=== PATIENT | female | born 1935 | race American Indian/Alaskan Native ===

== ENCOUNTER 2016-12-18 01:12 | Emergency (ER) | payer MEDICARE, MEDICAID ==
[2016-12-18 02:00] VITALS: TEMP 98.3; O2SAT 93
--- NOTE | 2016-12-18 02:46 | C.PDOC ---
History Of Present Illness A 81 year old female presents to the ED c/o abdominal pain and bloating that occurred over the past few days that has worsened. Patient is speaking in full sentences but denies chest pain, palpitations, SOB, fever, chills, vaginal discharge or bleeding, or any other complaints. Time Seen by Provider: 12/18/16 02:46 Chief Complaint (Nursing): GI Problem History Per: Patient History/Exam Limitations: no limitations Onset/Duration Of Symptoms: Days Current Symptoms Are (Timing): Still Present Severity: Mild Recent travel outside of the [place]: No Additional History Per: Patient Past Medical History Reviewed: Historical Data, Nursing Documentation, Vital Signs Vital Signs: Last Vital Signs Temp 98.3 F 12/18/16 01:55 Pulse 88 12/18/16 01:55 Resp 24 12/18/16 01:55 BP 141/84 12/18/16 01:55 Pulse Ox 93 L 12/18/16 05:52 - Medical History PMH: Arthritis, HTN, Sleep Apnea Surgical History: Cholecystectomy Family History: States: No Known Family Hx - Social History Hx Alcohol Use: No Hx Substance Use: No - Immunization History Hx Tetanus Toxoid Vaccination: No Hx Influenza Vaccination: Yes Hx Pneumococcal Vaccination: Yes Review Of Systems Except As Marked, All Systems Reviewed And Found Negative. Constitutional: Negative for: Fever, Chills Cardiovascular: Negative for: Chest Pain, Palpitations Respiratory: Negative for: Shortness of Breath Gastrointestinal: Positive for: Abdominal Pain (Pain and bloating) Genitourinary: Negative for: Vaginal Discharge, Vaginal Bleeding Physical Exam - Physical Exam Appears: Non-toxic, No Acute Distress Skin: Warm, Dry Head: Atraumatic Cardiovascular: No Murmur Respiratory: No Rales, No Rhonchi, No Wheezing Gastrointestinal/Abdominal: Soft, Distention (Distended to percussion), No Guarding, No Rebound Extremity: Pedal Edema (Traces to pedal edema) Neurological/Psych: Oriented x3, Normal Speech, No Other (No focal deficit) ED Course And Treatment - Laboratory Results Result Diagrams: 12/18/16 03:05 12/18/16 03:05 ECG: Interpreted By Me, Viewed By Me ECG Rhythm: Sinus Rhythm (87), R BBB, Nonspecific Changes O2 Sat by Pulse Oximetry: 93 (Room air) Pulse Ox Interpretation: Normal Reevaluation Time: 06:55 Reassessment Condition: Improved Medical Decision Making Medical Decision Making: Upon provider reevaluation patient is feeling better, is medically stable, and requires no further treatment in the ED at this time. Patient will be discharged home with Rx for miralax. Counseling was provided and all questions were answered regarding diagnosis and need for follow up with dr savage. There is agreement to discharge plan. Return if symptoms persist or worsen. Disposition Counseled Patient/Family Regarding: Studies Performed, Diagnosis - Disposition Referrals: Elie Savage MD [Primary Care Provider] - Disposition: HOME/ ROUTINE Disposition Time: 02:46 Condition: FAIR Prescriptions: Polyethylene Glycol 3350 [Miralax] 17 gm PO DAILY #270 ml Instructions: Abdominal Pain (ED), Gas and Bloating (ED), Constipation (DC) - Clinical Impression Clinical Impression: Abdominal pain, Constipation - Scribe Statement The provider has reviewed the documentation as recorded by the Scribe Maribel dooley All medical record entries made by the Scribe were at my direction and personally dictated by me. I have reviewed the chart and agree that the record accurately reflects my personal performance of the history, physical exam, medical decision making, and the department course for this patient. I have also personally directed, reviewed, and agree with the discharge instructions and disposition.
[2016-12-18 03:08] LABS: BASO # 0.1 K/uL (0.0-0.2); BASO % 0.7 % (0.0-2.0); EOS # 0.1 K/uL (0.0-0.7); EOS % 1.1 % (0.0-4.0); LYMPH # 1.2 K/uL (1.0-4.3); LYMPH % 17.3 % (20.0-40.0); MEAN CELL VOLUME 100.4 fL (81.0-99.0); MEAN CORPUSCULAR HEMOGLOBIN 32.7 pg (27.0-31.0); MEAN CORPUSCULAR HGB CONC 32.6 g/dL (33.0-37.0); MONO # 0.4 K/uL (0.0-0.8); MONO % 5.7 % (0.0-10.0); NRBC % 0.1 % (0.0-2.0); RED CELL DISTRIBUTION WIDTH 12.5 % (11.5-14.5); WHITE BLOOD COUNT 7.1 K/uL (4.8-10.8)
[2016-12-18 03:10] LABS: URINE BILIRUBIN NEGATIVE (NEGATIVE); URINE BLOOD NEGATIVE (NEGATIVE); URINE COLOR Straw (YELLOW); URINE GLUCOSE (UA) NORMAL (Normal); URINE KETONE NEGATIVE (NEGATIVE); URINE LEUKOCYTE ESTERASE NEG Leu/uL (Negative); URINE PROTEIN NEGATIVE (NEGATIVE); URINE UROBILINOGEN NORMAL mg/dL (0.2-1.0); WBC URINE < 1 /hpf (0-5)
[2016-12-18 03:20] LABS: CHLORIDE 98 mmol/L (98-107); POTASSIUM 4.2 mmol/L (3.6-5.2); SODIUM 142 mmol/L (132-148)
[2016-12-18 03:21] LABS: INR 1.1
[2016-12-18 03:22] LABS: ALKALINE PHOSPHATASE 73 U/L (38-126); AST/SGOT 32 U/L (14-36); BILIRUBIN,TOTAL 1.1 mg/dL (0.2-1.3); BLOOD UREA NITROGEN 13 mg/dL (7-17); CARBON DIOXIDE 30 mmol/L (22-30); GFR AFRICAN-AMERICAN > 60; TOTAL PROTEIN 8.6 g/dL (6.3-8.3)
[2016-12-18 03:23] LABS: ALT/SGPT 22 U/L (9-52); CALCIUM 9.1 mg/dl (8.6-10.4); GLUCOSE,RANDOM 142 mg/dL (65-105)
[2016-12-18] MEDS ORDERED: Iodixanol 320 MG/ML 100 ML BOTTLE IV ONE (04:47)
--- NOTE | 2016-12-18 06:55 | CT ---
EXAM: CT Abdomen and Pelvis With Intravenous Contrast CLINICAL HISTORY: 81 years old, female; Pain; Abdominal pain; Generalized; Additional info: Abd pain. Iv line infiltrated, scan done without visible contrast TECHNIQUE: Axial computed tomography images of the abdomen and pelvis with intravenous contrast. This CT exam was performed using one or more of the following dose reduction techniques: automated exposure control, adjustment of the mA and/or kV according to patient size, and/or use of iterative reconstruction technique. Coronal and sagittal reformatted images were created and reviewed. CONTRAST: 100 mL of [id number] administered intravenously. EXAM DATE/TIME: 12/18/2016 3:26 AM COMPARISON: No relevant prior studies available. FINDINGS: LIMITATIONS: The technologist noted that the patient's IV infiltrated, and this is essentially a noncontrast exam. Exam is also limited by moderate streak/motion artifact and artifact related to the patient's body habitus. LOWER THORAX: No infiltrate seen in the lung bases. ABDOMEN: LIVER: No acute abnormality of the liver identified. GALLBLADDER AND BILE DUCTS: Cholecystectomy clips. PANCREAS: No CT evidence of acute pancreatitis. SPLEEN: No acute abnormality of the spleen identified. ADRENALS: No acute abnormality of the adrenal glands identified. KIDNEYS AND URETERS: No acute abnormality of the kidneys identified. No evidence of significant hydrouereteronephrosis. STOMACH AND BOWEL: Extensive colonic diverticulosis, without evidence of acute diverticulitis. Otherwise, no definite abnormality of the bowel is identified. No evidence of small bowel obstruction, allowing for motion artifact. No acute abnormality of the stomach or duodenum identified. APPENDIX: Normal appendix is not seen, however, there are no significant inflammatory changes visualized in the expected location of the appendix to suggest appendicitis. Recommend clinical correlation. PELVIS: BLADDER: No acute abnormality of the bladder identified. REPRODUCTIVE:No acute abnormality of the reproductive organs is seen. No acute abnormality of the uterus identified. No evidence of large adnexal masses. ABDOMEN and PELVIS: INTRAPERITONEAL SPACE: No evidence of free intraperitoneal air or fluid. BONES/JOINTS: No acute fractures or other acute bony abnormality noted. SOFT TISSUES: No acute abnormality of the visualized soft tissues is seen. VASCULATURE: Atherosclerotic calcification. No evidence of abdominal aortic aneurysm. LYMPH NODES: No evidence of diffuse lymphadenopathy. IMPRESSION: - No definite acute process identified. Exam is limited by motion artifact, however. - See above for remaining findings.
[2016-12-18 07:04] VITALS: BP 135/79; PULSE 80; RESP 16
--- NOTE | 2017-01-05 11:54 | CARD ---
APPROVED REPORT EKG Measurement Heart [id number] <Conclusion> Normal sinus rhythm Left axis deviation Right bundle branch block Abnormal ECG
== END 2016-12-18 07:03 | disposition home or self-care (01) ==
LOC: C.ER 01:12 → SUPCPDRO 01:12 → MERGE 01:12 → C.ER 07:03
DX: K59.00 Constipation, unspecified (principal)
CPT/HCPCS: 74177; 80053; 81001; 83690; 85025; 85610; 85730; 93005; 96374; 96375; 99284; J2405; Q9967

== ENCOUNTER 2018-06-26 05:59 | Inpatient (IN) | payer MEDICARE, MEDICAID ==
[2018-06-26] MEDS ORDERED: MethylPREDNISolone 40 mg Vial IVP STA (07:18)
[2018-06-26] MEDS ORDERED: Albuterol-Ipratrop 3 mg / 0.5 (3 ml) UD INH STA ×2 (07:18→07:19)
--- NOTE | 2018-06-26 08:13 | C.PDOC ---
History Of Present Illness 82-year-old female, PMHx includes COPD, morbid obesity, and arthritis presents to the emergency department with complaints of a cough since last night. Patient is also complaining of her chronic arthritis pain. She denies any nausea/ vomiting, fever. Time Seen by Provider: 06/26/18 07:13 Chief Complaint (Nursing): Shortness Of Breath History Per: Patient History/Exam Limitations: no limitations Past Medical History Reviewed: Historical Data, Nursing Documentation, Vital Signs Vital Signs: Last Vital Signs Temp 98.6 F 06/26/18 06:27 Pulse 98 H 06/26/18 06:27 Resp 16 06/26/18 06:28 BP 138/74 06/26/18 06:27 Pulse Ox 100 06/26/18 06:27 - Medical History PMH: Arthritis, Asthma, CHF, COPD, HTN, Sleep Apnea, Chronic Pain Surgical History: Cholecystectomy - [facility] Procedures ASSISTANCE WITH RESPIRATORY VENTILATION, 24-96 HRS, CPAP (07/08/16) ASSISTANCE WITH RESPIRATORY VENTILATION, >96 HRS, CPAP (07/31/15) Family History: States: No Known Family Hx - Social History Hx Tobacco Use: No Hx Alcohol Use: No Hx Substance Use: No - Immunization History Hx Tetanus Toxoid Vaccination: No Hx Influenza Vaccination: No Hx Pneumococcal Vaccination: No Review Of Systems Constitutional: Negative for: Fever Respiratory: Positive for: Cough. Negative for: Shortness of Breath Gastrointestinal: Negative for: Nausea, Vomiting Physical Exam - Physical Exam Appears: Non-toxic, No Acute Distress, Other (morbidly obese) Skin: Warm, Dry, No Rash Head: Atraumatic, Normacephalic Eye(s): bilateral: Normal Inspection, PERRL, EOMI Nose: Normal Oral Mucosa: Moist Lips: Normal Appearing Neck: Normal ROM Cardiovascular: Rhythm Regular, No Murmur Respiratory: Normal Breath Sounds, No Accessory Muscle Use Gastrointestinal/Abdominal: Soft, No Tenderness Back: Normal Inspection Extremity: Normal ROM, No Deformity Neurological/Psych: Oriented x3, Normal Speech ED Course And Treatment - Laboratory Results Result Diagrams: 06/26/18 08:02 06/26/18 08:02 O2 Sat by Pulse Oximetry: 100 Pulse Ox Interpretation: Normal (RA) Medical Decision Making Medical Decision Making: ro copd chf pna. noted hypercarbia, ssupect chronic. bipap intiated. improved s/p abg. cxr ?developing infiltrate. empric antibiotics ordered. discussed with pmd accepts symptoms improving. Disposition - Disposition Disposition: HOSPITALIZED Disposition Time: 09:00 Condition: STABLE - Clinical Impression Clinical Impression: COPD (chronic obstructive pulmonary disease), Hypercarbia - Scribe Statement The provider has reviewed the documentation as recorded by the Scribe (Judith Rodriguez) Provider Attestation: All medical record entries made by the Scribe were at my direction and perso kar dictated by me. I have reviewed the chart and agree that the record accurately reflects my personal performance of the history, physical exam, medical decision making, and the department course for this patient. I have also personally directed, reviewed, and agree with the discharge instructions and disposition.
[2018-06-26 08:18] LABS: INR 1.2
[2018-06-26 08:20] LABS: BASO % 0.6 % (0.0-2.0); EOS % 0.6 % (0.0-4.0); HEMOGLOBIN 12.6 g/dL (11.0-16.0); LYMPH # 0.7 K/uL (1.0-4.3); LYMPH % 12.1 % (20.0-40.0); MEAN CELL VOLUME 99.5 fL (81.0-99.0); MEAN CORPUSCULAR HEMOGLOBIN 32.8 pg (27.0-31.0); MONO # 0.4 K/uL (0.0-0.8); MONO % 6.3 % (0.0-10.0); NEUT # 4.8 K/uL (1.8-7.0); NEUT % 80.4 % (50.0-75.0); NRBC % 0.1 % (0.0-2.0); RBC 3.83 Mil/uL (3.80-5.20); RED CELL DISTRIBUTION WIDTH 12.8 % (11.5-14.5)
[2018-06-26] MEDS ORDERED: Albuterol-Ipratrop 3 mg / 0.5 (3 ml) UD ONE (08:20)
[2018-06-26 08:29] LABS: ALBUMIN 3.9 g/dL (3.5-5.0); ALT/SGPT 18 U/L (9-52); AST/SGOT 19 U/L (14-36); BLOOD UREA NITROGEN 15 mg/dL (7-17); CALCIUM 9.1 mg/dl (8.6-10.4); GFR NON-AFRICAN AMERICAN > 60
[2018-06-26 08:33] LABS: VENOUS BLOOD GAS PCO2 67 mmHg (40-60); VENOUS BLOOD GAS PO2 47 mm/Hg (30-55); VENOUS BLOOD PH 7.33 (7.32-7.43)
[2018-06-26 08:41] LABS: B-TYPE NATRIURETIC PEPTIDE 63.3 pg/mL (0-900)
[2018-06-26] MEDS ORDERED: Azithromycin 500 MG in Sodium Chloride 0.9% 250 ML IVPB STA (08:43)
[2018-06-26 09:13] LABS: SQUAMOUS EPITHIAL 9 /hpf (0-5); URINE BACTERIA RARE (<OCC); URINE BILIRUBIN NEGATIVE (NEGATIVE); URINE BLOOD NEGATIVE (NEGATIVE); URINE CLARITY Clear (Clear); URINE COLOR Yellow (YELLOW); URINE GLUCOSE (UA) NORMAL (Normal); URINE LEUKOCYTE ESTERASE TRACE Leu/uL (Negative); URINE PROTEIN NEGATIVE (NEGATIVE); URINE UROBILINOGEN NORMAL mg/dL (0.2-1.0)
[2018-06-26 09:20] LABS: ABG ALLEN TEST POS; ARTERIAL BLOOD GAS O2 SAT 98.9 % (95-98); ARTERIAL BLOOD GAS PCO2 57 mm/Hg (35-45); ARTERIAL BLOOD GAS PH 7.36 (7.35-7.45); ARTERIAL BLOOD GAS PO2 136 mm/Hg (80-100); ARTERIAL BLOOD GAS TCO2 33.9 mmol/L (22-28)
--- NOTE | 2018-06-26 09:41 | RAD ---
Date of service: 06/26/2018 PROCEDURE: CHEST RADIOGRAPH, 1 VIEW HISTORY: chest pain COMPARISON: 07/10/2016 FINDINGS: LUNGS: Clear. PLEURA: No pneumothorax or pleural fluid seen. CARDIOVASCULAR: Normal. OSSEOUS STRUCTURES: No significant abnormalities. VISUALIZED UPPER ABDOMEN: Normal. OTHER FINDINGS: None. IMPRESSION: No active disease.
--- NOTE | 2018-06-26 16:01 | CP.PCM.PN ---
Subjective - Date & Time of Evaluation Date of Evaluation: 06/26/18 Time of Evaluation: 16:00 - Subjective Subjective: Progress note. Attending: Dr. Brandt. This is an 82 yo female with hx of COPD, HTN, irritable bowel syndrome, possible diabetes, heart failure presenting with chief complaint of shortness of breath and wheezing. Pt is present with her . Put on bipap in ER. Hx is limited as pt presents on Bipap and Creole is pt's first language. PMH: right heart failure, cor pulmonale?, most recent echo 2014, COPD/asthma, obesity hypoventilation syndrome Allergies: NKDA FH: non contributory Home meds: lasix, amitiza, eye itch drops, vitamin D Past surgical hx: cholecystectomy Social hx: non smoker. non drinker. non drug user. from [place]. Objective - Vital Signs/Intake and Output Vital Signs (last 24 hours): Temp Pulse Resp BP Pulse Ox 98.0 F 111 H 20 187/112 H 97 06/26/18 15:47 06/26/18 15:47 06/26/18 15:47 06/26/18 15:47 06/26/18 15:47 - Medications Medications: Current Medications Albuterol/Ipratropium (Duoneb 3 Mg/0.5 Mg (3 Ml) Ud) 3 ml INH RQ6 MISTY Amlodipine Besylate (Norvasc) 5 mg PO ONCE ONE Stop: 06/26/18 16:01 Furosemide (Lasix) 40 mg PO DAILY MISTY Ceftriaxone Sodium 1 gm/ (Sodium Chloride) 100 mls @ 100 mls/hr IVPB DAILY MISTY; Protocol Last Admin: 06/26/18 11:48 Dose: 100 mls/hr Methylprednisolone (Solu-Medrol) 40 mg IVP Q6 MISTY - Labs Labs: 06/26/18 08:02 06/26/18 08:02 PT 13.0 SECONDS (9.7-12.2) H 06/26/18 08:02 INR 1.2 06/26/18 08:02 APTT 34 SECONDS (21-34) 06/26/18 08:02 - Constitutional Appears: Chronically Ill - Head Exam Head Exam: ATRAUMATIC, NORMAL INSPECTION, NORMOCEPHALIC - Eye Exam Eye Exam: EOMI - ENT Exam ENT Exam: Mucous Membranes Moist - Neck Exam Neck Exam: Full ROM, Normal Inspection - Respiratory Exam Respiratory Exam: Clear to Ausculation Bilateral - Cardiovascular Exam Cardiovascular Exam: +S1, +S2 - GI/Abdominal Exam GI & Abdominal Exam: Soft, Normal Bowel Sounds. absent: Tenderness - Extremities Exam Extremities Exam: absent: Full ROM, Normal Inspection - Back Exam Back Exam: NORMAL INSPECTION - Neurological Exam Neurological Exam: Alert, Awake, CN II-XII Intact - Psychiatric Exam Psychiatric exam: Normal Affect, Normal Mood - Skin Skin Exam: Dry, Intact, Normal Color, Warm Assessment and Plan - Assessment and Plan (Free Text) Assessment: This is an 82 yo female with 1. COPD exacerbation -IV solumedrol q 6 -nebulizer tx -bipap -IV abx -ID consult. recs appreciated. Dr. Barney -BNP within normal limits -CXR -repeat labs am 2. tachycardia -will order cardio consult. Dr. Lamb. recs appreciated. -D dimer -sinus tachycardia on ekg -1st troponin negative 3. Obesity hypoventilation syndrome -bipap for now -follow up sleep study 4. Hx of right heart failure -cor pulmonale? -cardio consult. recs appreciated. Dr. Lamb. -previous echo shows severe right heart failure 4. Elevated blood glucose -will order HGB a1c -lipid panel 5. GI/DVT ppx -heparin 5000 q 8 -protonix [address] Brandt.
[2018-06-26 16:43] LABS: HDL CHOLESTEROL 36 mg/dL (30-70)
[2018-06-26 16:54] LABS: LDL CHOLESTEROL 142 mg/dL (0-129)
[2018-06-26] MEDS: MethylPREDNISolone 40 mg Vial IVP SCH (17:46)
--- NOTE | 2018-06-26 18:08 | CP.PCM.CON ---
History of Present Illness - History of Present Illness History of Present Illness: 82-year-old female, PMHx includes COPD, morbid obesity, and arthritis presents to the emergency department with complaints of a cough since last night. Admitted to floor with possible sepsis exac COPD and CHF requiring BiPaP - Medical History PMH: Arthritis, Asthma, CHF, COPD, HTN, Sleep Apnea, Chronic Pain, morbid obesity Surgical History: Cholecystectomy - [facility] Procedures ASSISTANCE WITH RESPIRATORY VENTILATION, 24-96 HRS, CPAP (07/08/16) ASSISTANCE WITH RESPIRATORY VENTILATION, >96 HRS, CPAP (07/31/15) Review of Systems - Review of Systems Systems not reviewed;Unavailable: Language Barrier All systems: reviewed and no additional remarkable complaints except - Constitutional Constitutional: As Per HPI - EENT Eyes: absent: As Per HPI, Blind Spots, Blurred Vision, Change in Vision, Decreased Night Vision, Diplopia, Discharge, Dry Eye, Exophthalmos, Floaters, Irritation, Itchy Eyes, Loss of Peripheral Vision, Pain, Photophobia, Requires Corrective Lenses, Sees Flashes, Spots in Vision, Tunnel Vision, Other Visual Disturbances, Loss of Vision, Other Ears: absent: As Per HPI, Decreased Hearing, Ear Discharge, Ear Pain, Tinnitus, Abnormal Hearing, Disequilibrium, Dizziness, Other Nose/Mouth/Throat: absent: As Per HPI, Epistaxis, Nasal Congestion, Nasal Discharge, Nasal Obstruction, Nasal Trauma, Nose Pain, Post Nasal Drip, Sinus Pain, Sinus Pressure, Bleeding Gums, Change in Voice, Dental Pain, Dry Mouth, Dysphagia, Halitosis, Hoarsness, Lip Swelling, Mouth Lesions, Mouth Pain, Odynophagia, Sore Throat, Throat Swelling, Tongue Swelling, Facial Pain, Neck Pain, Neck Mass, Other - Breasts Breasts: absent: As Per HPI, Change in Shape, Mass, Pain, Nipple Discharge, Nipple Inversion, Skin Changes, Swelling, Other - Cardiovascular Cardiovascular: As Per HPI - Respiratory Respiratory: As Per HPI - Gastrointestinal Gastrointestinal: absent: As Per HPI, Abdominal Pain, Belching, Bloating, Change in Bowel Habits, Change in Stool Character, Coffee Ground Emesis, Constipation, Cramping, Diarrhea, Dyspepsia, Dysphagia, Early Satiety, Excessive Flatus, Fecal Incontinence, Heartburn, Hematemesis, Hematochezia, Loose Stools, Melena, Na usea, Odynophagia, Temesmus, Vomiting, Other - Genitourinary Genitourinary: absent: As Per HPI, Change in Urinary Stream, Difficulty Urinating, Dysuria, Flank Pain, Hematuria, Pyuria, Nocturia, Urinary Incontinence, Urinary Frequency, Urinary Hesitance, Urinary Urgency, Voiding Freq/Small Amts, Freq UTI, Hx Renal/Bladder Calculi, Hx /Renal Surgery, Bladder Distension, Other - Reproductive: Female Reproductive:Female: absent: As Per HPI, Amenorrhea, Amenorrhea/ Control, Currently Menstual, Cycle <21 Days, Cycle >35 Days, Cycle Variable, Menses 1-7 Days, Menses >/= 8 Days, Menses Variable, Cycle > 4 Weeks Between, No Menses for 6 Months, Heavy Menses, Light Menses, Normal Menses, Spotting Between Cycles, S/P Hysterectomy, Menopausal, Post Menopausal, Premenarche, Abnormal Vaginal Bleeding, Dysmenorrhea, Dyspareunia, Genital Lesions, Genital Pruritis, Pelvic Pain, Prolapse Symptoms, Sexual Dysfunction, Vaginal Discharge, Vaginal Dryness, Vaginal Odor, Vaginal Pruritis, Other - Menstruation Menstruation: absent: As Per HPI, Amenorrhea, Amenorrhea/ Control, Cu rrently Menstual, Cycle <21 Days, Cycle >35 Days, Cycle Variable, Menses 1-7 Days, Menses >/= 8 Days, Menses Variable, Cycle > 4 Weeks Between, No Menses for 6 Months, Heavy Menses, Light Menses, Normal Menses, Spotting Between Cycles, S/P Hysterectomy, Menopausal, Post Menopausal, Premenarche, Abnormal Vaginal Bleeding, Dysmenorrhea, Other - Musculoskeletal Musculoskeletal: absent: As Per HPI, Abnormal Gait, Arthralgias, Atrophy, Back Pain, Deformity, Joint Swelling, Limited Range of Motion, Loss of Height, Muscle Cramps, Muscle Weakness, Myalgias, Neck Pain, Numbness, Radiating Pain into Limb, Stiffness, Tingling, Other - Integumentary Integumentary: absent: As Per HPI, Acne, Alopecia, Bleeding Lesions, Change in Hair, Change in Nails, Change in Pigmentation, Changing Lesions, Dry Skin, Erythema, Furuncle, Hirsutism, Lesions, New Lesions, Non-Healing Lesions, Photosensitivity, Pruritus, Rash, Skin Pain, Skin Ulcer, Sores, Striae, Swelling, Unusual Bruising, Wounds, Jaundice, Other - Neurological Neurological: absent: As Per HPI, Abnormal Gait, Abnormal Hearing, Abnormal Movements, Abnormal Speech, Behavioral Changes, Burning Sensations, Confusion, Convulsions, Disequilibrium, Dizziness, Numbness, Focal Weakness, Frequent Falls, Headaches, Lack of Coordination, Loss of Vision, Memory Loss, Paresthesias, Radicular Pain, Restless Legs, Sensory Deficit, Syncope, Tingling, Tremor, Vertigo, Weakness, Other Visual Disturbances, Other - Psychiatric Psychiatric: absent: As Per HPI, Abnormal Sleep Pattern, Anhedonia, Anxiety, Auditory Hallucinations, Behavioral Changes, Change in Appetite, Change in Libido, Confusion, Depression, Difficulty Concentrating, Hallucinations, Homicidal Ideation, Hopelessness, Irritability, Memory Loss, Mood Swings, Panic Attacks, Paranoia, Suicidal Ideation, Visual Hallucinations, Tactile Adriano lucinations, Other - Endocrine Endocrine: absent: As Per HPI, Change in Body Appearance, Change in Libido, Cold Intolorance, Deepening of Voice, Excessive Sweating, Fatigue, Flushing, Heat Intolorance, Increase in Ring/Shoe/Hat Size, Palpitations, Polydipsia, P olyphagia, Polyuria, Other - Hematologic/Lymphatic Hematologic: absent: As Per HPI, Easy Bleeding, Easy Bruising, Lymphadenopathy, Other Past Patient History - Infectious Disease Hx of Infectious Diseases: None - Past Medical History & Family History Past Medical History?: Yes - Past Social History Smoking Status: Never Smoked - CARDIAC Hx Congestive Heart Failure: Yes Hx Hypertension: Yes - PULMONARY Hx Asthma: Yes Hx Chronic Obstructive Pulmonary Disease (COPD): Yes Hx Sleep Apnea: Yes - NEUROLOGICAL Hx Neurological Disorder: No - HEENT Hx HEENT Problems: No - RENAL Hx Chronic Kidney Disease: No - ENDOCRINE/METABOLIC Hx Endocrine Disorders: No - HEMATOLOGICAL/ONCOLOGICAL Hx Blood Disorders: No - INTEGUMENTARY Hx Dermatological Problems: No - MUSCULOSKELETAL/RHEUMATOLOGICAL Hx Falls: No - GASTROINTESTINAL Hx Gastrointestinal Disorders: No Hx Constipation: Yes - GENITOURINARY/GYNECOLOGICAL Hx Genitourinary Disorders: No - PSYCHIATRIC Hx Substance Use: No - SURGICAL HISTORY Hx Cholecystectomy: Yes - ANESTHESIA Hx Anesthesia: Yes Hx Anesthesia Reactions: No Hx Malignant Hyperthermia: No Meds Allergies/Adverse Reactions: Allergies Allergy/AdvReac Type Severity Reaction Status Date / Time No Known Allergies Allergy Verified 07/31/15 18:49 - Medications Medications: Current Medications Albuterol/Ipratropium (Duoneb 3 Mg/0.5 Mg (3 Ml) Ud) 3 ml INH RQ6 [facility] Aspirin (Aspirin Chewable) 81 mg PO DAILY [facility] Furosemide (Lasix) 40 mg PO DAILY [facility] Heparin Sodium (Porcine) (Heparin) 5,000 units SC Q8 [facility] Ceftriaxone Sodium 1 gm/ (Sodium Chloride) 100 mls @ 100 mls/hr IVPB DAILY [facility]; Protocol Last Admin: 06/26/18 11:48 Dose: 100 mls/hr Influenza Virus Vaccine (Fluzone Quad [id number]) 60 mcg IM .ONCE ONE Stop: 06/27/18 10:01 Methylprednisolone (Solu-Medrol) 40 mg IVP Q6 [facility] Last Admin: 06/26/18 17:46 Dose: 40 mg Pneumococcal Polyvalent Vaccine (Pneumovax 23 Vaccine) 0.5 ml IM .ONCE ONE Stop: 06/27/18 10:01 Physical Exam - Constitutional Appears: No Acute Distress, Chronically Ill - Head Exam Head Exam: NORMOCEPHALIC - Eye Exam Eye Exam: absent: Scleral icterus - ENT Exam ENT Exam: Mucous Membranes Dry, Normal External Ear Exam - Neck Exam Neck exam: Negative for: Lymphadenopathy - Respiratory Exam Respiratory Exam: Decreased Breath Sounds, Prolonged Expiratory Phase, Rhonchi - Cardiovascular Exam Cardiovascular Exam: Tachycardia, REGULAR RHYTHM, +S1, +S2 - GI/Abdominal Exam GI & Abdominal Exam: Diminished Bowel Sounds, Distended, Soft. absent: Rebound, Tenderness - Rectal Exam Rectal Exam: Deferred - Exam Exam: NORMAL INSPECTION - Extremities Exam Extremities exam: Positive for: pedal edema, pedal pulses present. Negative for: tenderness - Back Exam Back exam: absent: CVA tenderness (L), CVA tenderness (R) - Neurological Exam Neurological exam: Alert, CN II-XII Intact, Oriented x3, Reflexes Normal - Psychiatric Exam Psychiatric exam: Depressed - Skin Skin Exam: Dry, Intact Results - Vital Signs Recent Vital Signs: Last Vital Signs Temp 98.0 F 06/26/18 15:47 Pulse 102 H 06/26/18 17:14 Resp 20 06/26/18 16:06 BP 187/112 H 06/26/18 15:47 Pulse Ox 97 06/26/18 15:47 - Labs Result Diagrams: 06/26/18 08:02 06/26/18 08:02 Labs: Laboratory Results - last 24 hr 06/26/18 06/26/18 06/26/18 08:02 08:02 08:02 WBC 6.0 RBC 3.83 Hgb 12.6 Hct 38.1 MCV 99.5 H MCH 32.8 H MCHC 33.0 RDW 12.8 Plt Count 205 MPV 9.0 Neut % (Auto) 80.4 H Lymph % (Auto) 12.1 L [place] % (Auto) 6.3 Eos % (Auto) 0.6 Baso % (Auto) 0.6 Neut # (Auto) 4.8 Lymph # (Auto) 0.7 L [place] # (Auto) 0.4 Eos # (Auto) 0.0 Baso # (Auto) 0.0 PT 13.0 H INR 1.2 APTT 34 D-Dimer, Quantitative Puncture Site pCO2 pO2 HCO3 ABG pH ABG Total CO2 ABG O2 Saturation ABG Base Excess Marcell Test ABG Potassium VBG pH VBG pCO2 VBG HCO3 VBG Total CO2 VBG O2 Sat (Calc) VBG Base Excess VBG Potassium A-a O2 Difference Respiratory Index Glucose Lactate Vent Mode Mechanical Rate FiO2 Inspiratory BiPAP Expiratory BiPAP Crit Value Called To Crit Value Called By Crit Value Read Back Blood Gas Notified Time Sodium 139 Potassium 3.9 Chloride 98 Carbon Dioxide 33 H Anion Gap 12 BUN 15 Creatinine 0.7 Est GFR ( Amer) > 60 Est GFR (Non-Af Amer) > 60 Random Glucose 149 H Hemoglobin A1c Lactic Acid Calcium 9.1 Total Bilirubin 0.8 AST 19 ALT 18 Alkaline Phosphatase 73 Troponin I < 0.0120 NT-Pro-B Natriuret Pep 63.3 Total Protein 7.8 Albumin 3.9 Globulin 3.9 Albumin/Globulin Ratio 1.0 Triglycerides Cholesterol LDL Cholesterol Direct HDL Cholesterol Procalcitonin Arterial Blood Potassium Venous Blood Potassium Urine Color Urine Clarity Urine pH Ur Specific [place] Urine Protein Urine Glucose (UA) Urine Ketones Urine Blood Urine Nitrate Urine Bilirubin Urine Urobilinogen Ur Leukocyte Esterase Urine WBC (Auto) Urine RBC (Auto) Ur Squamous Epith Cells Urine Bacteria Influenza Typ A,B (EIA) 06/26/18 06/26/18 06/26/18 08:02 08:24 08:56 WBC RBC Hgb Hct MCV MCH MCHC RDW Plt Count MPV Neut % (Auto) Lymph % (Auto) E[place] % (Auto) Eos % (Auto) Baso % (Auto) Neut # (Auto) Lymph # (Auto) [place] # (Auto) Eos # (Auto) Baso # (Auto) PT INR APTT D-Dimer, Quantitative Puncture Site pCO2 pO2 47 HCO3 ABG pH ABG Total CO2 ABG O2 Saturation ABG Base Excess Marcell Test ABG Potassium VBG pH 7.33 VBG pCO2 67 H* VBG HCO3 29.9 VBG Total CO2 37.4 H VBG O2 Sat (Calc) 83.6 H VBG Base Excess 7.0 H VBG Potassium 3.5 L A-a O2 Difference Respiratory Index Glucose 133 H Lactate 1.9 Vent Mode Mechanical Rate FiO2 Inspiratory BiPAP Expiratory BiPAP Crit Value Called To Max rn Crit Value Called By Sarah rt Crit Value Read Back Y Blood Gas Notified Time 832 Sodium 142.0 Potassium Chloride 103.0 Carbon Dioxide Anion Gap BUN Creatinine Est GFR ( Amer) Est GFR (Non-Af Amer) Random Glucose Hemoglobin A1c Lactic Acid Calcium Total Bilirubin AST ALT Alkaline Phosphatase Troponin I NT-Pro-B Natriuret Pep Total Protein Albumin Globulin Albumin/Globulin Ratio Triglycerides Cholesterol LDL Cholesterol Direct HDL Cholesterol Procalcitonin Arterial Blood Potassium Venous Blood Potassium 3.5 L Urine Color Yellow Urine Clarity Clear Urine pH 7.0 Ur Specific [place] 1.011 Urine Protein Negative Urine Glucose (UA) Normal Urine Ketones Negative Urine Blood Negative Urine Nitrate Negative Urine Bilirubin Negative Urine Urobilinogen Normal Ur Leukocyte Esterase Trace Urine WBC (Auto) 2 Urine RBC (Auto) < 1 Ur Squamous Epith Cells 9 H Urine Bacteria Rare Influenza Typ A,B (EIA) Negative for flu a/b 06/26/18 06/26/18 06/26/18 09:17 16:24 16:24 WBC RBC Hgb Hct MCV MCH MCHC RDW Plt Count MPV Neut % (Auto) Lymph % (Auto) [place] % (Auto) Eos % (Auto) Baso % (Auto) Neut # (Auto) Lymph # (Auto) [place] # (Auto) Eos # (Auto) Baso # (Auto) PT INR APTT D-Dimer, Quantitative < 200 Puncture Site Right radial pCO2 57 H pO2 136 H HCO3 29.0 H ABG pH 7.36 ABG Total CO2 33.9 H ABG O2 Saturation 98.9 H ABG Base Excess 5.1 H Marcell Test Pos ABG Potassium 3.5 L VBG pH VBG pCO2 VBG HCO3 VBG Total CO2 VBG O2 Sat (Calc) VBG Base Excess VBG Potassium A-a O2 Difference 78.0 Respiratory Index 0.6 Glucose 151 H Lactate 2.8 H Vent Mode Bipap Mechanical Rate 12 FiO2 40.0 Inspiratory BiPAP 12 Expiratory BiPAP 5 Crit Value Called To Crit Value Called By Crit Value Read Back Blood Gas Notified Time Sodium 140.0 Potassium Chloride 103.0 Carbon Dioxide Anion Gap BUN Creatinine Est GFR ( Amer) Est GFR (Non-Af Amer) Random Glucose Hemoglobin A1c Lactic Acid Calcium Total Bilirubin AST ALT Alkaline Phosphatase Troponin I NT-Pro-B Natriuret Pep Total Protein Albumin Globulin Albumin/Globulin Ratio Triglycerides Cholesterol LDL Cholesterol Direct HDL Cholesterol Procalcitonin < 0.05 L Arterial Blood Potassium 3.5 L Venous Blood Potassium Urine Color Urine Clarity Urine pH Ur Specific [place] Urine Protein Urine Glucose (UA) Urine Ketones Urine Blood Urine Nitrate Urine Bilirubin Urine Urobilinogen Ur Leukocyte Esterase Urine WBC (Auto) Urine RBC (Auto) Ur Squamous Epith Cells Urine Bacteria Influenza Typ A,B (EIA) 06/26/18 06/26/18 06/26/18 16:24 16:24 16:24 WBC RBC Hgb Hct MCV MCH MCHC RDW Plt Count MPV Neut % (Auto) Lymph % (Auto) [place] % (Auto) Eos % (Auto) Baso % (Auto) Neut # (Auto) Lymph # (Auto) [place] # (Auto) Eos # (Auto) Baso # (Auto) PT INR APTT D-Dimer, Quantitative Puncture Site pCO2 pO2 HCO3 ABG pH ABG Total CO2 ABG O2 Saturation ABG Base Excess Marcell Test ABG Potassium VBG pH VBG pCO2 VBG HCO3 VBG Total CO2 VBG O2 Sat (Calc) VBG Base Excess VBG Potassium A-a O2 Difference Respiratory Index Glucose Lactate Vent Mode Mechanical Rate FiO2 Inspiratory BiPAP Expiratory BiPAP Crit Value Called To Crit Value Called By Crit Value Read Back Blood Gas Notified Time Sodium Potassium Chloride Carbon Dioxide Anion Gap BUN Creatinine Est GFR ( Amer) Est GFR (Non-Af Amer) Random Glucose Hemoglobin A1c 5.5 Lactic Acid Calcium Total Bilirubin AST ALT Alkaline Phosphatase Troponin I < 0.0120 NT-Pro-B Natriuret Pep Total Protein Albumin Globulin Albumin/Globulin Ratio Triglycerides 77 Cholesterol 200 H LDL Cholesterol Direct 142 H HDL Cholesterol 36 Procalcitonin Arterial Blood Potassium Venous Blood Potassium Urine Color Urine Clarity Urine pH Ur Specific [place] Urine Protein Urine Glucose (UA) Urine Ketones Urine Blood Urine Nitrate Urine Bilirubin Urine Urobilinogen Ur Leukocyte Esterase Urine WBC (Auto) Urine RBC (Auto) Ur Squamous Epith Cells Urine Bacteria Influenza Typ A,B (EIA) 06/26/18 16:50 WBC RBC Hgb Hct MCV MCH MCHC RDW Plt Count MPV Neut % (Auto) Lymph % (Auto) [place] % (Auto) Eos % (Auto) Baso % (Auto) Neut # (Auto) Lymph # (Auto) [place] # (Auto) Eos # (Auto) Baso # (Auto) PT INR APTT D-Dimer, Quantitative Puncture Site pCO2 pO2 HCO3 ABG pH ABG Total CO2 ABG O2 Saturation ABG Base Excess Marcell Test ABG Potassium VBG pH VBG pCO2 VBG HCO3 VBG Total CO2 VBG O2 Sat (Calc) VBG Base Excess VBG Potassium A-a O2 Difference Respiratory Index Glucose Lactate Vent Mode Mechanical Rate FiO2 Inspiratory BiPAP Expiratory BiPAP Crit Value Called To Crit Value Called By Crit Value Read Back Blood Gas Notified Time Sodium Potassium Chloride Carbon Dioxide Anion Gap BUN Creatinine Est GFR ( Amer) Est GFR (Non-Af Amer) Random Glucose Hemoglobin A1c Lactic Acid 2.4 H Calcium Total Bilirubin AST ALT Alkaline Phosphatase Troponin I NT-Pro-B Natriuret Pep Total Protein Albumin Globulin Albumin/Globulin Ratio Triglycerides Cholesterol LDL Cholesterol Direct HDL Cholesterol Procalcitonin Arterial Blood Potassium Venous Blood Potassium Urine Color Urine Clarity Urine pH Ur Specific [place] Urine Protein Urine Glucose (UA) Urine Ketones Urine Blood Urine Nitrate Urine Bilirubin Urine Urobilinogen Ur Leukocyte Esterase Urine WBC (Auto) Urine RBC (Auto) Ur Squamous Epith Cells Urine Bacteria Influenza Typ A,B (EIA) Assessment & Plan (1) COPD (chronic obstructive pulmonary disease) Status: Acute (2) Hypercarbia Status: Chronic (3) Dyspnea Status: Acute (4) Obesity hypoventilation syndrome Status: Acute (5) Chronic pain Status: Chronic (6) HTN (hypertension) Status: Chronic - Assessment and Plan (Free Text) Assessment: cont iv rx for acute eac COPD / resp insuff await cultures prognosis guarded
[2018-06-26] MEDS: Albuterol-Ipratrop 3 mg / 0.5 (3 ml) UD INH SCH ×2 (19:30)
--- NOTE | 2018-06-26 19:33 | CARD ---
APPROVED REPORT Date of service: 06/26/2018 EKG Measurement Heart [id number] <Conclusion> Sinus tachycardia Right bundle branch block Abnormal ECG
[2018-06-27] MEDS: MethylPREDNISolone 40 mg Vial IVP SCH ×4 (00:28→17:23)
[2018-06-27] MEDS: Albuterol-Ipratrop 3 mg / 0.5 (3 ml) UD INH SCH ×4 (02:10→19:44)
--- NOTE | 2018-06-27 07:47 | CP.PCM.PN ---
Subjective - Date & Time of Evaluation Date of Evaluation: 06/27/18 Time of Evaluation: 07:46 - Subjective Subjective: PGY2- Progress note for Dr. Brandt Patient was seen and examined at bedside in no acute distress. Patient reports her breathing has improved since yesterday. Patient denies cough, shortness or breath, chest pain, palpitations, nausea, vomiting, fevers, headaches, abdominal pain, constipation, diarrhea, dysuria. No acute events overnight. Objective - Vital Signs/Intake and Output Vital Signs (last 24 hours): Temp Pulse Resp BP Pulse Ox 98.5 F 86 20 152/93 H 97 06/26/18 23:15 06/27/18 05:00 06/26/18 23:15 06/26/18 23:15 06/26/18 23:15 - Medications Medications: Current Medications Albuterol/Ipratropium (Duoneb 3 Mg/0.5 Mg (3 Ml) Ud) 3 ml INH RQ6 [facility] Last Admin: 06/27/18 07:26 Dose: 3 ml Aspirin (Aspirin Chewable) 81 mg PO DAILY [facility] Furosemide (Lasix) 40 mg PO DAILY [facility] Heparin Sodium (Porcine) (Heparin) 5,000 units SC Q8 [facility] Last Admin: 06/27/18 06:16 Dose: 5,000 units Ceftriaxone Sodium 1 gm/ (Sodium Chloride) 100 mls @ 100 mls/hr IVPB DAILY [facility]; Protocol Last Admin: 06/26/18 11:48 Dose: 100 mls/hr Influenza Virus Vaccine (Fluzone Quad [id number]) 60 mcg IM .ONCE ONE Stop: 06/27/18 10:01 Methylprednisolone (Solu-Medrol) 40 mg IVP Q6 [facility] Last Admin: 06/27/18 06:16 Dose: 40 mg Pneumococcal Polyvalent Vaccine (Pneumovax 23 Vaccine) 0.5 ml IM .ONCE ONE Stop: 06/27/18 10:01 - Labs Labs: 06/26/18 08:02 06/26/18 08:02 PT 13.0 SECONDS (9.7-12.2) H 06/26/18 08:02 INR 1.2 06/26/18 08:02 APTT 34 SECONDS (21-34) 06/26/18 08:02 - Constitutional Appears: No Acute Distress - Head Exam Head Exam: NORMAL INSPECTION - Eye Exam Eye Exam: EOMI, Normal appearance - ENT Exam ENT Exam: Mucous Membranes Moist - Respiratory Exam Respiratory Exam: Decreased Breath Sounds, NORMAL BREATHING PATTERN. absent: Rales, Rhonchi, Wheezes, Respiratory Distress - Cardiovascular Exam Cardiovascular Exam: REGULAR RHYTHM, +S1, +S2 - GI/Abdominal Exam GI & Abdominal Exam: Soft, Normal Bowel Sounds. absent: Distended, Firm, Tenderness - Extremities Exam Extremities Exam: Normal Inspection. absent: Pedal Edema, Tenderness - Neurological Exam Neurological Exam: Alert, Awake, Oriented x3 - Psychiatric Exam Psychiatric exam: Normal Affect, Normal Mood - Skin Skin Exam: Dry, Normal Color, Warm Assessment and Plan - Assessment and Plan (Free Text) Plan: COPD exacerbation - Solumedrol 40mg IV Q6h - Duonebs Q6h - Bipap - ID consult. recs appreciated. Dr. Barney - Rocephin 1gm IV Q24h (active since 06/26/18) - BNP within normal limits - CXR: no active disease Tachycardia - Cardiology consulted- Dr. Lamb. recs appreciated. - D dimer <200 - EKG: sinus tachy@105bpm - Troponin x3: negative Obesity hypoventilation syndrome - Bipap Hx of right heart failure - Cardiology consulted- Dr. Lamb; recs appreciated. - Previous echo shows severe right heart failure - Echo: f/u Elevated blood glucose - HGB a1c: 5.5 - Lipid panel: TG 77, Chol 200, LDL 142, HDL 36 Prophylaxis - DVT: Heparin 5000units SC Q8h, SCDs - GI: Protonix 40mg PO daily All management/orders per Dr. Brandt.
[2018-06-27 07:57] LABS: BASO % 0.5 % (0.0-2.0); HEMOGLOBIN 13.2 g/dL (11.0-16.0); LYMPH # 0.7 K/uL (1.0-4.3); LYMPH % 9.9 % (20.0-40.0); MEAN CELL VOLUME 99.4 fL (81.0-99.0); MEAN CORPUSCULAR HEMOGLOBIN 33.2 pg (27.0-31.0); MEAN CORPUSCULAR HGB CONC 33.4 g/dL (33.0-37.0); MEAN PLATELET VOLUME 9.1 fL (7.2-11.7); MONO # 0.2 K/uL (0.0-0.8); MONO % 2.5 % (0.0-10.0); NEUT # 6.4 K/uL (1.8-7.0); NEUT % 87.1 % (50.0-75.0); PLATELET COUNT 219 K/uL (130-400); RBC 3.98 Mil/uL (3.80-5.20); WHITE BLOOD COUNT 7.3 K/uL (4.8-10.8)
[2018-06-27 08:37] LABS: ALBUMIN 4.1 g/dL (3.5-5.0); ALT/SGPT 26 U/L (9-52); AST/SGOT 38 U/L (14-36); BLOOD UREA NITROGEN 14 mg/dL (7-17); CALCIUM 9.4 mg/dl (8.6-10.4); GFR NON-AFRICAN AMERICAN > 60
[2018-06-27 09:34] LABS: LYMPHOCYTE 9 % (20-40); MONOCYTE 1 % (0-10); NEUTROPHIL 90 % (50-75); PLATELET ESTIMATE NORMAL (NORMAL); TOTAL CELLS COUNTED 100
[2018-06-27] MEDS ORDERED: Pneumococcal 23-Valent Vaccine IM ONE (10:00)
[2018-06-27] MEDS ORDERED: Influenza Vaccine 60 MCG/0.5 ML SYR (3 yr & up) IM ONE (10:00)
[2018-06-27 16:33] VITALS: RESP 20
--- NOTE | 2018-06-27 19:45 | CP.PCM.PN ---
Subjective - Date & Time of Evaluation Date of Evaluation: 06/27/18 Time of Evaluation: 08:00 - Subjective Subjective: cultures neg thus far breathing less labored afebrile Objective - Vital Signs/Intake and Output Vital Signs (last 24 hours): Temp Pulse Resp BP Pulse Ox 97.1 F L 97 H 20 134/80 100 06/27/18 15:00 06/27/18 16:00 06/27/18 15:00 06/27/18 15:00 06/27/18 15:00 Intake and Output: 06/27/18 06/28/18 18:59 06:59 Intake Total 360 Balance 360 - Medications Medications: Current Medications Albuterol/Ipratropium (Duoneb 3 Mg/0.5 Mg (3 Ml) Ud) 3 ml INH RQ6 [facility] Last Admin: 06/27/18 19:44 Dose: 3 ml Aspirin (Aspirin Chewable) 81 mg PO DAILY [facility] Last Admin: 06/27/18 10:22 Dose: 81 mg Furosemide (Lasix) 40 mg PO DAILY [facility] Last Admin: 06/27/18 10:22 Dose: 40 mg Heparin Sodium (Porcine) (Heparin) 5,000 units SC Q8 [facility] Last Admin: 06/27/18 13:44 Dose: 5,000 units Ceftriaxone Sodium 1 gm/ (Sodium Chloride) 100 mls @ 100 mls/hr IVPB DAILY [facility]; Protocol Last Admin: 06/27/18 10:24 Dose: 100 mls/hr Influenza Virus Vaccine (Fluzone Quad [id number]) 60 mcg IM .ONCE ONE Stop: 06/28/18 10:01 Methylprednisolone (Solu-Medrol) 40 mg IVP Q6 [facility] Last Admin: 06/27/18 17:23 Dose: 40 mg Pneumococcal Polyvalent Vaccine (Pneumovax 23 Vaccine) 0.5 ml IM .ONCE ONE Stop: 06/28/18 10:01 - Labs Labs: 06/27/18 07:37 06/27/18 07:37 PT 13.0 SECONDS (9.7-12.2) H 06/26/18 08:02 INR 1.2 06/26/18 08:02 APTT 32 SECONDS (21-34) 06/27/18 07:37 - Constitutional Appears: Non-toxic, Chronically Ill - Head Exam Head Exam: NORMOCEPHALIC - Eye Exam Eye Exam: absent: Scleral icterus - ENT Exam ENT Exam: Mucous Membranes Dry - Neck Exam Neck Exam: absent: Lymphadenopathy - Respiratory Exam Respiratory Exam: Decreased Breath Sounds - Cardiovascular Exam Cardiovascular Exam: REGULAR RHYTHM - GI/Abdominal Exam GI & Abdominal Exam: Distended - Rectal Exam Rectal Exam: Deferred - Exam Exam: NORMAL INSPECTION - Extremities Exam Extremities Exam: Pedal Edema - Back Exam Back Exam: absent: CVA tenderness (L), CVA tenderness (R) Assessment and Plan (1) COPD (chronic obstructive pulmonary disease) Status: Acute (2) Hypercarbia Status: Chronic (3) Dyspnea Status: Acute (4) Obesity hypoventilation syndrome Status: Acute (5) Chronic pain Status: Chronic (6) HTN (hypertension) Status: Chronic
--- NOTE | 2018-06-27 21:42 | CARD ---
APPROVED REPORT Date of service: 06/26/2018 EKG Measurement Heart [id number] <Conclusion> Sinus tachycardia with premature atrial complexes Right bundle branch block Left anterior fascicular block Bifascicular block Abnormal ECG
[2018-06-28] MEDS: Albuterol-Ipratrop 3 mg / 0.5 (3 ml) UD INH SCH ×3 (01:12→13:10)
[2018-06-28] MEDS: MethylPREDNISolone 40 mg Vial IVP SCH ×4 (01:30→17:19)
[2018-06-28] MEDS ORDERED: Pneumococcal 23-Valent Vaccine IM ONE (10:00)
[2018-06-28] MEDS ORDERED: Influenza Vaccine 60 MCG/0.5 ML SYR (3 yr & up) IM ONE (10:00)
--- NOTE | 2018-06-28 13:12 | CP.PCM.PN ---
Subjective - Date & Time of Evaluation Date of Evaluation: 06/28/18 Time of Evaluation: 13:09 - Subjective Subjective: PGY2 Progress note for Dr. Brandt Patient was seen and examined at bedside in no acute distress. Patient reports she is feeling better and no longer short of breath. The patient denies chest pain, palpitations, nausea, vomiting, fevers, headaches abdominal pain. Objective - Vital Signs/Intake and Output Vital Signs (last 24 hours): Temp Pulse Resp BP Pulse Ox 97.7 F 69 20 143/81 97 06/28/18 08:11 06/28/18 08:11 06/28/18 08:11 06/28/18 09:15 06/28/18 08:11 Intake and Output: 06/28/18 06/28/18 06:59 18:59 Intake Total 320 Balance 320 - Medications Medications: Current Medications Albuterol/Ipratropium (Duoneb 3 Mg/0.5 Mg (3 Ml) Ud) 3 ml INH RQ6 [facility] Last Admin: 06/28/18 07:30 Dose: 3 ml Aspirin (Aspirin Chewable) 81 mg PO DAILY [facility] Last Admin: 06/28/18 10:40 Dose: 81 mg Furosemide (Lasix) 40 mg PO DAILY [facility] Last Admin: 06/28/18 09:15 Dose: 40 mg Heparin Sodium (Porcine) (Heparin) 5,000 units SC Q8 [facility] Last Admin: 06/28/18 05:52 Dose: 5,000 units Ceftriaxone Sodium 1 gm/ (Sodium Chloride) 100 mls @ 100 mls/hr IVPB DAILY [facility]; Protocol Last Admin: 06/28/18 09:18 Dose: 100 mls/hr Methylprednisolone (Solu-Medrol) 40 mg IVP Q6 [facility] Last Admin: 06/28/18 05:52 Dose: 40 mg - Labs Labs: 06/27/18 07:37 06/27/18 07:37 PT 13.0 SECONDS (9.7-12.2) H 06/26/18 08:02 INR 1.2 06/26/18 08:02 APTT 32 SECONDS (21-34) 06/27/18 07:37 - Additional Findings Additional findings: - Constitutional Appears: No Acute Distress - Head Exam Head Exam: NORMAL INSPECTION - Eye Exam Eye Exam: EOMI, Normal appearance - ENT Exam ENT Exam: Mucous Membranes Moist - Respiratory Exam Respiratory Exam: Decreased Breath Sounds, NORMAL BREATHING PATTERN. absent: Rales, Rhonchi, Wheezes, Respiratory Distress - Cardiovascular Exam Cardiovascular Exam: REGULAR RHYTHM, +S1, +S2 - GI/Abdominal Exam GI & Abdominal Exam: Soft, Normal Bowel Sounds. absent: Distended, Firm, Tenderness - Extremities Exam Extremities Exam: Normal Inspection. absent: Pedal Edema, Tenderness - Neurological Exam Neurological Exam: Alert, Awake, Oriented x3 - Psychiatric Exam Psychiatric exam: Normal Affect, Normal Mood - Skin Skin Exam: Dry, Normal Color, Warm Assessment and Plan - Assessment and Plan (Free Text) Plan: COPD exacerbation - Solumedrol 40mg IV Q6h - Duonebs Q6h - Bipap - ID consult. recs appreciated. Dr. Barney - Rocephin 1gm IV Q24h (active since 06/26/18) - BNP within normal limits - CXR: no active disease Tachycardia - Cardiology consulted- Dr. Lamb. recs appreciated. - D dimer <200 - EKG: sinus tachy@105bpm - Troponin x3: negative Obesity hypoventilation syndrome - Bipap Hx of right heart failure - Cardiology consulted- Dr. Lamb; recs appreciated. - Previous echo shows severe right heart failure - Echo: completed, pending official report. Patient should follow up as outpatient for results. Elevated blood glucose - HGB a1c: 5.5 - Lipid panel: TG 77, Chol 200, LDL 142, HDL 36 Prophylaxis - DVT: Heparin 5000units SC Q8h, SCDs - GI: Protonix 40mg PO daily All management/orders per Dr. Brandt. Patient is stable for discharge to home per Dr. Brandt. Patient must continue home medications. Patient must take new medications listed below: 1. Medrol dose pack: take as directed 2. Z-satnam: take as directed. Patient must follow up with PMD, Dr. Brandt, within 1 week of discharge. If symptoms worsen or reoccur, patient should return to the nearest ED.
[2018-06-28 16:06] VITALS: BP 119/82; PULSE 101; TEMP 98.2; O2SAT 98
== END 2018-06-28 18:05 | disposition home or self-care (01) | DRG 191 ==
LOC: SUPCPDRO 05:59 → C.ER 05:59 → C.9E 08:56 → C.6T 09:33
PROVIDERS: ADMIT Internal Medicine Pulmonary Disease; ATTEND Internal Medicine Pulmonary Disease
PROC: 5A09457 Assistance with Respiratory Ventilation, 24-96 Consecutive Hours, Continuous Positive Airway Pressure (ICD-10-PCS; principal; 2018-06-26)
DX: J44.1 Chronic obstructive pulmonary disease with (acute) exacerbation (principal); E66.2 Morbid (severe) obesity with alveolar hypoventilation; Z68.38 Body mass index [BMI] 38.0-38.9, adult; G89.29 Other chronic pain; I11.0 Hypertensive heart disease with heart failure; M19.90 Unspecified osteoarthritis, unspecified site; R73.9 Hyperglycemia, unspecified; R00.0 Tachycardia, unspecified; K58.9 Irritable bowel syndrome, unspecified; I50.9 Heart failure, unspecified

== ENCOUNTER 2018-09-15 10:11 | Inpatient (IN) | payer MEDICARE, MEDICAID ==
--- NOTE | 2018-09-15 10:43 | C.PDOC ---
History Of Present Illness 83 year old female with a history of COPD presents to the emergency department with reports of productive cough, nasal congestion, shortness of breath, body aches, and blocked right ear since 09-12-18. Patient states that she has been taking Nyquil with minimal relief, and states that her symptoms worsen at night when she takes her c-pap. Patient denies sick contact, fever, chills, nausea, vomiting, chest pain, and abdominal pain. 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 denies: Fever, Chills, Chest Pain Past Medical History Reviewed: Historical Data, Nursing Documentation, Vital Signs Vital Signs: Last Vital Signs Temp 99.2 F 09/15/18 10:32 Pulse 101 H 09/15/18 10:32 Resp 20 09/15/18 10:32 BP 115/69 09/15/18 10:32 Pulse Ox 96 09/15/18 10:32 - Medical History PMH: Arthritis, Asthma, CHF, COPD, HTN, Sleep Apnea, Chronic Pain Denies: Chronic Kidney Disease Surgical History: Cholecystectomy - [facility] Procedures ASSISTANCE WITH RESPIRATORY VENTILATION, 24-96 HRS, CPAP (06/26/18) ASSISTANCE WITH RESPIRATORY VENTILATION, >96 HRS, CPAP (07/31/15) Family History: States: No Known Family Hx - Social History Hx Tobacco Use: No Hx Alcohol Use: No Hx Substance Use: No - Immunization History Hx Tetanus Toxoid Vaccination: No Hx Influenza Vaccination: No Hx Pneumococcal Vaccination: No Review Of Systems Except As Marked, All Systems Reviewed And Found Negative. Constitutional: Negative for: Fever, Chills ENT: Positive for: Nose Congestion, Other (blocked ear (right)) Cardiovascular: Negative for: Chest Pain Respiratory: Positive for: Cough, Shortness of Breath, Sputum Gastrointestinal: Negative for: Nausea, Vomiting, Abdominal Pain Musculoskeletal: Positive for: Other (body aches) Physical Exam - Physical Exam Appears: Non-toxic, No Acute Distress, Other (morbidly obese) Skin: Warm, Dry Head: Atraumatic, Normacephalic Eye(s): bilateral: Normal Inspection Nose: Normal Oral Mucosa: Moist Throat: Normal, No Erythema, No Exudate Neck: Normal, Supple Chest: Symmetrical, No Tenderness Cardiovascular: Rhythm Regular, No Murmur Respiratory: Normal Breath Sounds, No Rales, No Rhonchi, No Wheezing Gastrointestinal/Abdominal: Soft, No Tenderness, No Guarding, No Rebound, Other (obese) Extremity: Swelling (B/L pitting edema) Neurological/Psych: Oriented x3, Normal Speech, Normal Cognition ED Course And Treatment - Laboratory Results Result Diagrams: 09/15/18 11:15 09/15/18 11:15 O2 Sat by Pulse Oximetry: 96 (RA) Pulse Ox Interpretation: Normal Medical Decision Making Medical Decision Making: Plan: EKG Chemistry Bloodwork CXR Flu Swab Disposition Discussed With DrAruna: Elie Brandt - Disposition Disposition: HOSPITALIZED Disposition Time: 12:15 Condition: GUARDED Instructions: COPD Including Emphysema (DC), Exacerbation of COPD (DC) Forms: [employer] (Singaporean) - Clinical Impression Clinical Impression: CHF exacerbation, SOB (shortness of breath), COPD (chronic obstructive pulmonary disease) - Scribe Statement The provider has reviewed the documentation as recorded by the Scribe (Preston Freed) Decision To Admit - Pt Status Changed To: Hospital Disposition Of: Observation - . Bed Request Type: Telemetry Admitting Physician: Elie Brandt Patient Diagnosis: CHF exacerbation, SOB (shortness of breath), COPD (chronic obstructive pulmonary disease)
[2018-09-15 11:19] LABS: BASO % 0.2 % (0.0-2.0); EOS # 0.1 K/uL (0.0-0.7); EOS % 0.8 % (0.0-4.0); HEMOGLOBIN 12.3 g/dL (11.0-16.0); LYMPH # 1.3 K/uL (1.0-4.3); LYMPH % 17.5 % (20.0-40.0); MEAN CELL VOLUME 101.6 fL (81.0-99.0); MEAN CORPUSCULAR HEMOGLOBIN 32.2 pg (27.0-31.0); MEAN CORPUSCULAR HGB CONC 31.7 g/dL (33.0-37.0); MEAN PLATELET VOLUME 8.5 fL (7.2-11.7); MONO # 0.5 K/uL (0.0-0.8); MONO % 6.1 % (0.0-10.0); NEUT # 5.7 K/uL (1.8-7.0); NEUT % 75.4 % (50.0-75.0); RBC 3.81 Mil/uL (3.80-5.20); RED CELL DISTRIBUTION WIDTH 13.2 % (11.5-14.5); WHITE BLOOD COUNT 7.6 K/uL (4.8-10.8)
[2018-09-15 11:31] LABS: ALB/GLOB RATIO 1.2 (1.0-2.1); ALBUMIN 4.2 g/dL (3.5-5.0); ALT/SGPT 13 U/L (9-52); AST/SGOT 21 U/L (14-36); BLOOD UREA NITROGEN 10 mg/dL (7-17); CALCIUM 8.7 mg/dl (8.6-10.4); GFR NON-AFRICAN AMERICAN > 60
[2018-09-15 11:43] LABS: B-TYPE NATRIURETIC PEPTIDE 65.5 pg/mL (0-900)
--- NOTE | 2018-09-15 12:03 | C.PDOC ---
Time Seen by Provider: 09/15/18 10:20 Chief Complaint (Nursing): Shortness Of Breath Past Medical History Vital Signs: Last Vital Signs Temp 99.2 F 09/15/18 10:32 Pulse 92 H 09/15/18 11:36 Resp 23 09/15/18 11:36 BP 122/65 09/15/18 11:36 Pulse Ox 96 09/15/18 12:00 - Medical History PMH: Arthritis, Asthma, CHF, COPD, HTN, Sleep Apnea, Chronic Pain Denies: Chronic Kidney Disease Surgical History: Cholecystectomy - [facility] Procedures ASSISTANCE WITH RESPIRATORY VENTILATION, 24-96 HRS, CPAP (06/26/18) ASSISTANCE WITH RESPIRATORY VENTILATION, >96 HRS, CPAP (07/31/15) Family History: States: No Known Family Hx, Unknown Family Hx - Social History Hx Tobacco Use: No Hx Alcohol Use: No Hx Substance Use: No - Immunization History Hx Tetanus Toxoid Vaccination: No Hx Influenza Vaccination: No Hx Pneumococcal Vaccination: No ED Course And Treatment - Laboratory Results Result Diagrams: 09/15/18 11:15 09/15/18 11:15 Lab Results: Troponin I < 0.0120 ng/mL (0.00-0.120) 09/15/18 11:15 NT-Pro-B Natriuret Pep 65.5 pg/mL (0-900) 09/15/18 11:15 Total Bilirubin 0.7 mg/dL (0.2-1.3) 09/15/18 11:15 AST 21 U/L (14-36) 09/15/18 11:15 ALT 13 U/L (9-52) 09/15/18 11:15 Alkaline Phosphatase 82 U/L (38-126) 09/15/18 11:15 Total Protein 7.7 g/dL (6.3-8.3) 09/15/18 11:15 Albumin 4.2 g/dL (3.5-5.0) 09/15/18 11:15 Globulin 3.5 gm/dL (2.2-3.9) 09/15/18 11:15 Albumin/Globulin Ratio 1.2 (1.0-2.1) 09/15/18 11:15 O2 Sat by Pulse Oximetry: 96 (RA) Disposition - Disposition Disposition: HOSPITALIZED Disposition Time: 12:00 Condition: IMPROVED Instructions: Exacerbation of COPD (DC), COPD Including Emphysema (DC) Forms: [employer] (Guyanese) - Clinical Impression Clinical Impression: CHF exacerbation, SOB (shortness of breath), COPD (chronic obstructive pulmonary disease) Decision To Admit - Pt Status Changed To: Hospital Disposition Of: Observation - InPatient: Physician Admission Certification: I certify that this patient requires 2 or more midnights of care for the following reason:: CHF/ COPD exacerbation; Respiratory distress - . Bed Request Type: Telemetry Admitting Physician: Elie Brandt Patient Diagnosis: CHF exacerbation, SOB (shortness of breath), COPD (chronic obstructive pulmonary disease)
--- NOTE | 2018-09-15 13:39 | RAD ---
Chest x-ray two views HISTORY: Shortness of breath. Comparison: 06/26/2018 Findings: Moderate to severe venous congestion. Moderate left pleural effusion. Right hilar prominence. Patchy increased markings at the lung bases. Enlarged ectatic aorta with calcification at the aortic knob. Cardiomegaly. Biapical pleural thickening with upper lobe granulomatous changes. Degenerative changes in the spine and shoulders. Impression: Moderate to severe venous congestion. Moderate left pleural effusion. Right hilar prominence. Patchy increased markings at the lung bases. Enlarged ectatic aorta with calcification at the aortic knob. Cardiomegaly.
[2018-09-15] MEDS ORDERED: Home Med 1 UNIT (Oxycodone Hcl/Acetaminophen [Percocet 10-325 Mg Tablet] 1 EACH) PO PRN (18:44)
[2018-09-15] MEDS: Azithromycin 500 MG in Sodium Chloride 0.9% 250 ML IVPB SCH (20:16)
[2018-09-15] MEDS: MethylPREDNISolone 40 mg Vial IVP SCH (22:50)
[2018-09-15] MEDS ORDERED: MethylPREDNISolone 40 mg Vial ONE (22:51)
[2018-09-16 04:41] LABS: BASO # 0.1 K/uL (0.0-0.2); BASO % 0.8 % (0.0-2.0); EOS % 0.5 % (0.0-4.0); LYMPH # 0.7 K/uL (1.0-4.3); LYMPH % 8.6 % (20.0-40.0); MEAN CELL VOLUME 100.5 fL (81.0-99.0); MEAN CORPUSCULAR HEMOGLOBIN 32.3 pg (27.0-31.0); MEAN CORPUSCULAR HGB CONC 32.1 g/dL (33.0-37.0); MEAN PLATELET VOLUME 8.7 fL (7.2-11.7); MONO % 0.6 % (0.0-10.0); NEUT % 89.5 % (50.0-75.0); PLATELET COUNT 239 K/uL (130-400); RBC 4.01 Mil/uL (3.80-5.20); WHITE BLOOD COUNT 7.8 K/uL (4.8-10.8)
[2018-09-16 04:54] LABS: ALB/GLOB RATIO 1.2 (1.0-2.1); ALBUMIN 4.6 g/dL (3.5-5.0); ALT/SGPT 17 U/L (9-52); AST/SGOT 26 U/L (14-36); BLOOD UREA NITROGEN 13 mg/dL (7-17); CALCIUM 9.3 mg/dl (8.6-10.4); GFR NON-AFRICAN AMERICAN > 60
[2018-09-16 06:00] LABS: LYMPHOCYTE 10 % (20-40); MONOCYTE 0 % (0-10); NEUTROPHIL 89 % (50-75); PLATELET ESTIMATE NORMAL (NORMAL); REACTIVE LYMPHOCYTES 1 % (0-0); TOTAL CELLS COUNTED 100
--- NOTE | 2018-09-16 08:33 | HP ---
HISTORY OF PRESENT ILLNESS: This is an 83-year-old female with a history of morbid obesity, sleep apnea, and COPD, and admitted to the hospital with chief compliant of weakness, fatigue, tiredness, and shortness of breath, came to the ER, advised admission. SOCIAL HISTORY: The patient is a nonsmoker and nondrinker. PHYSICAL EXAMINATION: GENERAL: The patient is awake, alert, and obese. VITAL SIGNS: Temperature is 98, pulse 90. HEENT: Within normal limits. NECK: Supple. CHEST: Symmetrical. Decreased air entry. HEART: Regular. ABDOMEN: Soft. Obese. EXTREMITIES: No edema. IMPRESSION AND PLAN: The patient has chronic obstructive pulmonary disease, pneumonia, and cor pulmonale. The patient was placed on bed rest, supportive care, IV antibiotics. Elie Brandt MD
--- NOTE | 2018-09-16 09:55 | CP.PCM.PN ---
Subjective - Date & Time of Evaluation Date of Evaluation: 09/16/18 Time of Evaluation: 09:55 - Subjective Subjective: PGY2 Medicine Note for Dr. Brandt Patient seen and examined this morning at bedside. Patient was admitted yesterday for COPD exacerbation. She is still complaining of difficulty breathing. She is sitting up in bed eating breakfast. She is speaking softly, but in complete sentences. Denies fevers, chills, nausea, vomiting, diarrhea, c onstipation, chest pain, numbness or tingling. Objective - Vital Signs/Intake and Output Vital Signs (last 24 hours): Temp Pulse Resp BP Pulse Ox 98.3 F 94 H 18 143/84 98 09/16/18 05:37 09/16/18 07:20 09/16/18 07:20 09/16/18 07:20 09/16/18 07:20 - Medications Medications: Current Medications Amlodipine Besylate (Norvasc) 10 mg PO DAILY [facility] Enoxaparin Sodium (Lovenox) 40 mg SC DAILY [facility] Ergocalciferol (Drisdol 50,000 Intl Units Cap) 1 cap PO QWK [facility] Furosemide (Lasix) 40 mg IVP DAILY [facility] Azithromycin 500 mg/ Sodium (Chloride) 250 mls @ 250 mls/hr IVPB DAILY [facility]; Protocol Last Admin: 09/15/18 20:16 Dose: 250 mls/hr Ceftriaxone Sodium 1 gm/ (Sodium Chloride) 100 mls @ 100 mls/hr IVPB DAILY [facility]; Protocol Last Admin: 09/15/18 19:27 Dose: 100 mls/hr Methylprednisolone (Solu-Medrol) 40 mg IVP Q12 [facility] Last Admin: 09/15/18 22:50 Dose: 40 mg Oxycodone/Acetaminophen (Percocet 5/325 Mg Tab) 1 tab PO Q6H PRN PRN Reason: Pain, moderate (4-7) Pantoprazole Sodium (Protonix Inj) 40 mg IVP DAILY [facility] - Labs Labs: 09/16/18 04:38 09/16/18 04:38 - Constitutional Appears: Non-toxic, No Acute Distress, Chronically Ill (morbidly obese) - Head Exam Head Exam: ATRAUMATIC, NORMOCEPHALIC - Eye Exam Eye Exam: Normal appearance - ENT Exam ENT Exam: Mucous Membranes Moist - Respiratory Exam Respiratory Exam: Decreased Breath Sounds, Prolonged Expiratory Phase, Wheezes (mild b/l - end expiratory only). absent: Accessory Muscle Use, Rales, Rhonchi, Respiratory Distress - Cardiovascular Exam Cardiovascular Exam: REGULAR RHYTHM, +S1 - GI/Abdominal Exam GI & Abdominal Exam: Soft. absent: Distended, Firm, Guarding, Rigid, Tenderness Additional comments: morbidly obese - Extremities Exam Extremities Exam: Pedal Edema. absent: Calf Tenderness - Neurological Exam Neurological Exam: Alert, Awake, Oriented x3 - Psychiatric Exam Psychiatric exam: Normal Affect, Normal Mood - Skin Skin Exam: Dry, Warm Assessment and Plan - Assessment and Plan (Free Text) Plan: COPD exacerbation Obesity hypoventilation syndrome - Solumedrol 40mg IV Q12h - Duonebs Q6h - Lasix 40mg IVP daily - Azithromycin 500mg IVPB daily (started on 09/15/18) - Rocephin 1gm IVPB daily (started on 09/15/18) - Bipap as needed (on Bipap prn at home) - BNP - CXR: no active disease Hypertension - Amlodipine 10mg PO daily Elevated blood glucose - HGB a1c: 5.5 - Lipid panel: TG 77, Chol 200, LDL 142, HDL 36 Prophylaxis - DVT: Lovenox 40mg SC daily - GI: Protonix 40mg IVP daily - continue home Ergocalciferol 1 cap PO qWK All management/orders per Dr. Brandt.
[2018-09-16] MEDS: Azithromycin 500 MG in Sodium Chloride 0.9% 250 ML IVPB SCH (10:59)
[2018-09-16] MEDS: MethylPREDNISolone 40 mg Vial IVP SCH ×2 (11:00→21:04)
[2018-09-16] MEDS: Enoxaparin 40 mg Syringe SC SCH (11:00)
[2018-09-16] MEDS: Oxycodone/Acetaminophen 5/325 mg Tab PO PRN ×2 (12:48→21:06)
[2018-09-17] MEDS: MethylPREDNISolone 40 mg Vial IVP SCH ×2 (09:52→21:00)
[2018-09-17] MEDS: Enoxaparin 40 mg Syringe SC SCH (09:52)
[2018-09-17] MEDS: Azithromycin 500 MG in Sodium Chloride 0.9% 250 ML IVPB SCH (09:59)
[2018-09-17] MEDS: Oxycodone/Acetaminophen 5/325 mg Tab PO PRN (12:41)
--- NOTE | 2018-09-17 15:37 | CP.PCM.PN ---
Subjective - Date & Time of Evaluation Date of Evaluation: 09/17/18 Time of Evaluation: 08:55 - Subjective Subjective: Medicine progress note ( Dr. Brandt's service) Patient was seen and examined at bedside, while sitting in bed. Patient reports that she is doing well but still with mild shortness of breath. Patient denies symptoms of fever, chills, nausea, vomiting, chest pain, palpitations, cough or dizziness. Objective - Vital Signs/Intake and Output Vital Signs (last 24 hours): Temp Pulse Resp BP Pulse Ox 97.9 F 90 20 123/78 99 09/17/18 07:00 09/17/18 07:00 09/17/18 07:00 09/17/18 09:53 09/17/18 07:00 - Medications Medications: Current Medications Amlodipine Besylate (Norvasc) 10 mg PO DAILY [facility] Last Admin: 09/17/18 10:00 Dose: 10 mg Enoxaparin Sodium (Lovenox) 40 mg SC DAILY [facility] Last Admin: 09/17/18 09:52 Dose: 40 mg Ergocalciferol (Drisdol 50,000 Intl Units Cap) 1 cap PO QWK [facility] Furosemide (Lasix) 40 mg IVP DAILY [facility] Last Admin: 09/17/18 09:53 Dose: 40 mg Azithromycin 500 mg/ Sodium (Chloride) 250 mls @ 250 mls/hr IVPB DAILY [facility]; Protocol Last Admin: 09/17/18 09:59 Dose: 250 mls/hr Ceftriaxone Sodium 1 gm/ (Sodium Chloride) 100 mls @ 100 mls/hr IVPB DAILY [facility]; Protocol Last Admin: 09/17/18 09:59 Dose: 100 mls/hr Methylprednisolone (Solu-Medrol) 40 mg IVP Q12 [facility] Last Admin: 09/17/18 09:52 Dose: 40 mg Oxycodone/Acetaminophen (Percocet 5/325 Mg Tab) 1 tab PO Q6H PRN PRN Reason: Pain, moderate (4-7) Last Admin: 09/17/18 12:41 Dose: 1 tab Pantoprazole Sodium (Protonix Inj) 40 mg IVP DAILY [facility] Last Admin: 09/17/18 10:03 Dose: 40 mg - Labs Labs: 09/16/18 04:38 09/16/18 04:38 - Constitutional Appears: No Acute Distress - Head Exam Head Exam: ATRAUMATIC - Eye Exam Eye Exam: EOMI - ENT Exam ENT Exam: Mucous Membranes Moist - Respiratory Exam Respiratory Exam: Decreased Breath Sounds, Clear to Ausculation Bilateral, NORMAL BREATHING PATTERN. absent: Prolonged Expiratory Phase, Rhonchi, Wheezes, Respiratory Distress - Cardiovascular Exam Cardiovascular Exam: REGULAR RHYTHM, +S1, +S2. absent: Murmur - GI/Abdominal Exam GI & Abdominal Exam: Soft, Normal Bowel Sounds. absent: Distended, Firm, Guarding, Rigid, Tenderness Additional comments: morbidly obese - Extremities Exam Extremities Exam: absent: Calf Tenderness, Pedal Edema - Neurological Exam Neurological Exam: Alert, Awake, Oriented x3 - Psychiatric Exam Psychiatric exam: Normal Affect - Skin Skin Exam: Normal Color Assessment and Plan (1) COPD exacerbation Assessment & Plan: Chest X-ray: Moderate to severe venous congestion. Moderate left pleural effusion. Right hilar prominence. Patchy increased markings at the lung bases. Enlarged ectatic aorta with calcification at the aortic knob. Cardiomegaly. - Solumedrol 40mg IV Q12h - Duonebs 3ml INH RQ6H - Lasix 40mg IVP daily - Azithromycin 500mg IVPB daily (started on 09/15/18) - Rocephin 1gm IVPB daily (started on 09/15/18) Status: Acute (2) Obesity hypoventilation syndrome Assessment & Plan: Bipap at night Status: Acute (3) Pulmonary vascular congestion Assessment & Plan: Chest X-ray: Moderate to severe venous congestion. Moderate left pleural effusion. Right hilar prominence. Patchy increased markings at the lung bases. Enlarged ectatic aorta with calcification at the aortic knob. Cardiomegaly. - Lasix 40mg IVP daily Status: Acute (4) Hypertension Assessment & Plan: - Amlodipine 10mg PO daily Status: Acute (5) Blood glucose elevated Assessment & Plan: - HGB a1c: 5.5 - Lipid panel: TG 77, Chol 200, LDL 142, HDL 36 Status: Acute (6) Prophylactic measure Assessment & Plan: - DVT: Lovenox 40mg SC daily - GI: Protonix 40mg IVP daily - continue home Ergocalciferol 1 cap PO qWK -PT: Will benefit from Therapy Ex and gait training All management/orders per Dr. Brandt. Status: Acute
[2018-09-17] MEDS ORDERED: Albuterol-Ipratrop 3 mg / 0.5 (3 ml) UD INH PRN (15:41)
[2018-09-17] MEDS ORDERED: Albuterol-Ipratrop 3 mg / 0.5 (3 ml) UD INH SCH (20:00)
[2018-09-18 08:38] LABS: BASO % 0.3 % (0.0-2.0); MEAN CELL VOLUME 100.7 fL (81.0-99.0); MEAN CORPUSCULAR HEMOGLOBIN 33.1 pg (27.0-31.0); MEAN CORPUSCULAR HGB CONC 32.9 g/dL (33.0-37.0); MEAN PLATELET VOLUME 8.8 fL (7.2-11.7); MONO # 0.3 K/uL (0.0-0.8); MONO % 4.6 % (0.0-10.0); NEUT # 6.1 K/uL (1.8-7.0); NEUT % 82.1 % (50.0-75.0); RBC 3.94 Mil/uL (3.80-5.20); RED CELL DISTRIBUTION WIDTH 12.8 % (11.5-14.5); WHITE BLOOD COUNT 7.5 K/uL (4.8-10.8)
[2018-09-18 09:04] LABS: ALB/GLOB RATIO 1.1 (1.0-2.1); ALBUMIN 4.2 g/dL (3.5-5.0); ALT/SGPT 42 U/L (9-52); AST/SGOT 51 U/L (14-36); BLOOD UREA NITROGEN 20 mg/dL (7-17); CALCIUM 9.4 mg/dl (8.6-10.4); GFR NON-AFRICAN AMERICAN > 60
[2018-09-18] MEDS: Azithromycin 500 MG in Sodium Chloride 0.9% 250 ML IVPB SCH (11:22)
[2018-09-18] MEDS: MethylPREDNISolone 40 mg Vial IVP SCH ×2 (11:23→21:56)
[2018-09-18] MEDS: Enoxaparin 40 mg Syringe SC SCH (11:25)
[2018-09-18] MEDS: Oxycodone/Acetaminophen 5/325 mg Tab PO PRN (14:36)
--- NOTE | 2018-09-18 15:31 | CP.PCM.PN ---
Subjective - Date & Time of Evaluation Date of Evaluation: 09/18/18 Time of Evaluation: 07:00 - Subjective Subjective: PGY2- Progress Note for Dr. Brandt Ball Shagger: [id number] Patient seen and examined at bedside. Patient says she is not feeling well and complains of bilateral knee pain. Patient says her breathing is better than yesterday, but she still has some shortness of breath. Patient denies any chest pain, abdominal pain, nausea, vomiting, constipation, or diarrhea. Objective - Vital Signs/Intake and Output Vital Signs (last 24 hours): Temp Pulse Resp BP Pulse Ox 98.2 F 90 18 123/82 98 09/18/18 08:00 09/18/18 12:41 09/18/18 12:41 09/18/18 12:41 09/18/18 12:41 - Medications Medications: Current Medications Albuterol/Ipratropium (Duoneb 3 Mg/0.5 Mg (3 Ml) Ud) 3 ml INH RQ6 PRN PRN Reason: Shortness of Breath Amlodipine Besylate (Norvasc) 10 mg PO DAILY [facility] Last Admin: 09/18/18 11:23 Dose: 10 mg Enoxaparin Sodium (Lovenox) 40 mg SC DAILY [facility] Last Admin: 09/18/18 11:25 Dose: 40 mg Ergocalciferol (Drisdol 50,000 Intl Units Cap) 1 cap PO QWK [facility] Furosemide (Lasix) 40 mg IVP DAILY [facility] Last Admin: 09/18/18 11:23 Dose: 40 mg Azithromycin 500 mg/ Sodium (Chloride) 250 mls @ 250 mls/hr IVPB DAILY [facility]; Protocol Last Admin: 09/18/18 11:22 Dose: 250 mls/hr Ceftriaxone Sodium 1 gm/ (Sodium Chloride) 100 mls @ 100 mls/hr IVPB DAILY [facility]; Protocol Last Admin: 09/18/18 11:23 Dose: 100 mls/hr Methylprednisolone (Solu-Medrol) 40 mg IVP Q12 [facility] Last Admin: 09/18/18 11:23 Dose: 40 mg Oxycodone/Acetaminophen (Percocet 5/325 Mg Tab) 1 tab PO Q6H PRN PRN Reason: Pain, moderate (4-7) Last Admin: 09/18/18 14:36 Dose: 1 tab Pantoprazole Sodium (Protonix Inj) 40 mg IVP DAILY [facility] Last Admin: 09/18/18 11:24 Dose: 40 mg - Labs Labs: 09/18/18 08:23 09/18/18 08:23 - Constitutional Appears: Non-toxic, No Acute Distress - Head Exam Head Exam: ATRAUMATIC, NORMAL INSPECTION, NORMOCEPHALIC - Eye Exam Eye Exam: EOMI, Normal appearance - ENT Exam ENT Exam: Mucous Membranes Moist - Respiratory Exam Respiratory Exam: NORMAL BREATHING PATTERN - Cardiovascular Exam Cardiovascular Exam: REGULAR RHYTHM, RRR, +S1, +S2 - GI/Abdominal Exam GI & Abdominal Exam: Soft, Normal Bowel Sounds. absent: Tenderness Additional comments: morbidly obese - Extremities Exam Extremities Exam: Normal Inspection, Tenderness. absent: Pedal Edema Additional comments: b/l knee tenderness - Neurological Exam Neurological Exam: Alert, Awake, Oriented x3 - Psychiatric Exam Psychiatric exam: Normal Affect, Normal Mood - Skin Skin Exam: Intact, Normal Color, Warm Assessment and Plan - Assessment and Plan (Free Text) Assessment: (1) COPD exacerbation Assessment & Plan: Chest X-ray: Moderate to severe venous congestion. Moderate left pleural effusion. Right hilar prominence. Patchy increased markings at the lung bases. Enlarged ectatic aorta with calcification at the aortic knob. Cardiomegaly. - Solumedrol 40mg IV Q12h - Duonebs 3ml INH RQ6H - Lasix 40mg IVP daily - Azithromycin 500mg IVPB daily (started on 09/15/18) - Rocephin 1gm IVPB daily (started on 09/15/18) Status: Acute (2) Obesity hypoventilation syndrome Assessment & Plan: Bipap at night Status: Acute (3) Pulmonary vascular congestion Assessment & Plan: Chest X-ray: Moderate to severe venous congestion. Moderate left pleural effusion. Right hilar prominence. Patchy increased markings at the lung bases. Enlarged ectatic aorta with calcification at the aortic knob. Cardiomegaly. - Lasix 40mg IVP daily Status: Acute (4) Hypertension Assessment & Plan: - Amlodipine 10mg PO daily Status: Acute (5) Blood glucose elevated Assessment & Plan: - HGB a1c: 5.5 - Lipid panel: TG 77, Chol 200, LDL 142, HDL 36 Status: Acute (6) Prophylactic measure Assessment & Plan: - DVT: Lovenox 40mg SC daily - GI: Protonix 40mg IVP daily - continue home Ergocalciferol 1 cap PO qWK -PT: Will benefit from Therapy Ex and gait training Status: Acute All management/orders per Dr. Brandt. Dispo: Patient awaiting midline. Possible d/c to [facility] tomorrow.
--- NOTE | 2018-09-18 22:43 | CARD ---
APPROVED REPORT Date of service: 09/15/2018 EKG Measurement Heart [id number] <Conclusion> Sinus rhythm with premature atrial complexes Right bundle branch block Abnormal ECG
[2018-09-19 09:06] LABS: BASO % 0.4 % (0.0-2.0); HEMOGLOBIN 13.8 g/dL (11.0-16.0); LYMPH # 0.8 K/uL (1.0-4.3); LYMPH % 11.2 % (20.0-40.0); MEAN CELL VOLUME 100.7 fL (81.0-99.0); MEAN CORPUSCULAR HEMOGLOBIN 32.9 pg (27.0-31.0); MEAN CORPUSCULAR HGB CONC 32.7 g/dL (33.0-37.0); MONO # 0.3 K/uL (0.0-0.8); MONO % 4.3 % (0.0-10.0); NEUT # 5.8 K/uL (1.8-7.0); NEUT % 84.1 % (50.0-75.0); RBC 4.18 Mil/uL (3.80-5.20); RED CELL DISTRIBUTION WIDTH 12.7 % (11.5-14.5); WHITE BLOOD COUNT 6.8 K/uL (4.8-10.8)
[2018-09-19 09:20] LABS: ALB/GLOB RATIO 1.1 (1.0-2.1); ALBUMIN 4.5 g/dL (3.5-5.0); ALT/SGPT 89 U/L (9-52); AST/SGOT 83 U/L (14-36); BLOOD UREA NITROGEN 23 mg/dL (7-17); CALCIUM 9.3 mg/dl (8.6-10.4); GFR NON-AFRICAN AMERICAN > 60
[2018-09-19] MEDS: Enoxaparin 40 mg Syringe SC SCH (09:20)
[2018-09-19] MEDS: MethylPREDNISolone 40 mg Vial IVP SCH (09:24)
--- NOTE | 2018-09-19 09:28 | CP.PCM.PN ---
Subjective - Date & Time of Evaluation Date of Evaluation: 09/19/18 Time of Evaluation: 07:00 - Subjective Subjective: PGY-[address] Brandt Cane Flume Watchman: [id number] Patient seen and examined at bedside and in no acute distress. Patient says she is feeling much better than when she first came to the hospital, but still has some shortness of breath and cough. Patient says she coughs up white sputum. Patient says her knee pain is a little better today. Patient denies any chest pain, abdominal pain, nausea, vomiting, constipation, or diarrhea. Objective - Vital Signs/Intake and Output Vital Signs (last 24 hours): Temp Pulse Resp BP Pulse Ox 98.3 F 91 H 21 147/87 95 09/19/18 08:04 09/19/18 08:04 09/19/18 08:04 09/19/18 09:20 09/19/18 08:04 - Medications Medications: Current Medications Albuterol/Ipratropium (Duoneb 3 Mg/0.5 Mg (3 Ml) Ud) 3 ml INH RQ6 PRN PRN Reason: Shortness of Breath Last Admin: 09/19/18 03:18 Dose: 3 ml Amlodipine Besylate (Norvasc) 10 mg PO DAILY [facility] Last Admin: 09/19/18 09:20 Dose: 10 mg Enoxaparin Sodium (Lovenox) 40 mg SC DAILY [facility] Last Admin: 09/19/18 09:20 Dose: 40 mg Ergocalciferol (Drisdol 50,000 Intl Units Cap) 1 cap PO QWK [facility] Furosemide (Lasix) 40 mg IVP DAILY [facility] Last Admin: 09/19/18 09:20 Dose: 40 mg Azithromycin 500 mg/ Sodium (Chloride) 250 mls @ 250 mls/hr IVPB DAILY [facility]; Protocol Last Admin: 09/18/18 11:22 Dose: 250 mls/hr Ceftriaxone Sodium 1 gm/ (Sodium Chloride) 100 mls @ 100 mls/hr IVPB DAILY [facility]; Protocol Last Admin: 09/19/18 09:21 Dose: 100 mls/hr Methylprednisolone (Solu-Medrol) 40 mg IVP Q12 [facility] Last Admin: 09/19/18 09:24 Dose: 40 mg Oxycodone/Acetaminophen (Percocet 5/325 Mg Tab) 1 tab PO Q6H PRN PRN Reason: Pain, moderate (4-7) Last Admin: 09/18/18 14:36 Dose: 1 tab Pantoprazole Sodium (Protonix Inj) 40 mg IVP DAILY [facility] Last Admin: 09/19/18 09:21 Dose: 40 mg - Labs Labs: 09/19/18 08:57 09/19/18 08:57 - Additional Findings Additional findings: - Constitutional Appears: Non-toxic, No Acute Distress - Head Exam Head Exam: ATRAUMATIC, NORMAL INSPECTION, NORMOCEPHALIC - Eye Exam Eye Exam: EOMI, Normal appearance - ENT Exam ENT Exam: Mucous Membranes Moist - Respiratory Exam Respiratory Exam: NORMAL BREATHING PATTERN - Cardiovascular Exam Cardiovascular Exam: REGULAR RHYTHM, RRR, +S1, +S2 - GI/Abdominal Exam GI & Abdominal Exam: Soft, Normal Bowel Sounds. absent: Tenderness Additional comments: morbidly obese - Extremities Exam Extremities Exam: Normal Inspection, Tenderness. absent: Pedal Edema Additional comments: b/l knee tenderness - Neurological Exam Neurological Exam: Alert, Awake, Oriented x3 - Psychiatric Exam Psychiatric exam: Normal Affect, Normal Mood - Skin Skin Exam: Intact, Normal Color, Warm Assessment and Plan - Assessment and Plan (Free Text) Assessment: (1) COPD exacerbation Assessment & Plan: Chest X-ray: Moderate to severe venous congestion. Moderate left pleural effusion. Right hilar prominence. Patchy increased markings at the lung bases. Enlarged ectatic aorta with calcification at the aortic knob. Cardiomegaly. - Prednisone 40mg po daily (day 1, then do a taper) - Duonebs 3ml INH RQ6H - Lasix 40mg po daily - d/c Azithromycin 500mg IVPB daily (started on 09/15/18 stopped on 09/19/18) - d/c Rocephin 1gm IVPB daily (started on 09/15/18, stopped on 09/19/18) - start Azithromycin 500mg po daily (to be completed on 09/21/18) Status: Acute (2) Obesity hypoventilation syndrome Assessment & Plan: Bipap at night Status: Acute (3) Pulmonary vascular congestion Assessment & Plan: Chest X-ray: Moderate to severe venous congestion. Moderate left pleural effusion. Right hilar prominence. Patchy increased markings at the lung bases. Enlarged ectatic aorta with calcification at the aortic knob. Cardiomegaly. - Lasix 40mg po daily Status: Acute (4) Hypertension Assessment & Plan: - Amlodipine 10mg PO daily Status: Acute (5) Blood glucose elevated Assessment & Plan: - HGB a1c: 5.5 - Lipid panel: TG 77, Chol 200, LDL 142, HDL 36 Status: Acute (6) Prophylactic measure Assessment & Plan: - DVT: Lovenox 40mg SC daily - GI: Protonix 40mg po daily - continue home Ergocalciferol 1 cap PO qWK -PT: Will benefit from Therapy Ex and gait training Status: Acute All management/orders per Dr. Brandt. Dispo: Pending discharge to [facility] for physical therapy.
[2018-09-20 07:21] LABS: BASO # 0.1 K/uL (0.0-0.2); BASO % 0.7 % (0.0-2.0); EOS % 0.2 % (0.0-4.0); LYMPH # 1.9 K/uL (1.0-4.3); LYMPH % 22.5 % (20.0-40.0); MEAN CELL VOLUME 100.9 fL (81.0-99.0); MEAN CORPUSCULAR HEMOGLOBIN 33.5 pg (27.0-31.0); MEAN CORPUSCULAR HGB CONC 33.2 g/dL (33.0-37.0); MEAN PLATELET VOLUME 9.7 fL (7.2-11.7); MONO # 0.8 K/uL (0.0-0.8); MONO % 9.3 % (0.0-10.0); NEUT # 5.5 K/uL (1.8-7.0); NEUT % 67.3 % (50.0-75.0); RBC 4.19 Mil/uL (3.80-5.20); RED CELL DISTRIBUTION WIDTH 12.8 % (11.5-14.5); WHITE BLOOD COUNT 8.2 K/uL (4.8-10.8)
[2018-09-20 07:49] LABS: ALB/GLOB RATIO 1.1 (1.0-2.1); ALT/SGPT 110 U/L (9-52); AST/SGOT 97 U/L (14-36); BLOOD UREA NITROGEN 28 mg/dL (7-17); GFR NON-AFRICAN AMERICAN > 60
--- NOTE | 2018-09-20 09:36 | CP.PCM.PN ---
Subjective - Date & Time of Evaluation Date of Evaluation: 09/20/18 Time of Evaluation: 09:35 - Subjective Subjective: Progress Note for Dr. Brandt Patient seen and examined at bedside this morning. Patient reports to have improved coughing and shortness of breath. Patient still complains of bilateral knee pain. She denies fever, chills, shortness of breath, chest pain, nausea, vomiting, or diarrhea. Objective - Vital Signs/Intake and Output Vital Signs (last 24 hours): Temp Pulse Resp BP Pulse Ox 97.4 F L 93 H 21 133/92 H 97 09/20/18 08:01 09/20/18 08:20 09/20/18 08:01 09/20/18 08:01 09/20/18 08:01 Intake and Output: 09/20/18 09/20/18 06:59 18:59 Intake Total 400 Balance 400 - Medications Medications: Current Medications Albuterol/Ipratropium (Duoneb 3 Mg/0.5 Mg (3 Ml) Ud) 3 ml INH RQ6 PRN PRN Reason: Shortness of Breath Last Admin: 09/19/18 03:18 Dose: 3 ml Amlodipine Besylate (Norvasc) 10 mg PO DAILY [facility] Last Admin: 09/19/18 09:20 Dose: 10 mg Azithromycin (Zithromax) 500 mg PO Q24H [facility]; Protocol Stop: 09/21/18 12:01 Last Admin: 09/19/18 11:57 Dose: 500 mg Enoxaparin Sodium (Lovenox) 40 mg SC DAILY [facility] Last Admin: 09/19/18 09:20 Dose: 40 mg Ergocalciferol (Drisdol 50,000 Intl Units Cap) 1 cap PO QWK [facility] Furosemide (Lasix) 40 mg PO DAILY [facility] Oxycodone/Acetaminophen (Percocet 5/325 Mg Tab) 1 tab PO Q6H PRN PRN Reason: Pain, moderate (4-7) Last Admin: 09/18/18 14:36 Dose: 1 tab Pantoprazole Sodium (Protonix Ec Tab) 40 mg PO DAILY [facility] Prednisone (Prednisone Tab) 40 mg PO DAILY [facility] - Labs Labs: 09/20/18 07:04 09/20/18 07:04 - Additional Findings Additional findings: - Constitutional Appears: Non-toxic, No Acute Distress - Head Exam Head Exam: ATRAUMATIC, NORMAL INSPECTION, NORMOCEPHALIC - Eye Exam Eye Exam: EOMI, Normal appearance - ENT Exam ENT Exam: Mucous Membranes Moist - Respiratory Exam Respiratory Exam: NORMAL BREATHING PATTERN - Cardiovascular Exam Cardiovascular Exam: REGULAR RHYTHM, RRR, +S1, +S2 - GI/Abdominal Exam GI & Abdominal Exam: Soft, Normal Bowel Sounds. absent: Tenderness Additional comments: morbidly obese - Extremities Exam Extremities Exam: Normal Inspection, Tenderness. absent: Pedal Edema Additional comments: b/l knee limited range of motion due to pain, no loss of sensation, reflex intact - Neurological Exam Neurological Exam: Alert, Awake, Oriented x3 - Psychiatric Exam Psychiatric exam: Normal Affect, Normal Mood - Skin Skin Exam: Intact, Normal Color, Warm Assessment and Plan - Assessment and Plan (Free Text) Assessment: (1) COPD exacerbation Assessment & Plan: Chest X-ray: Moderate to severe venous congestion. Moderate left pleural effusion. Right hilar prominence. Patchy increased markings at the lung bases. Enlarged ectatic aorta with calcification at the aortic knob. Cardiomegaly. - Prednisone 40mg po daily (day 1, then do a taper) - Duonebs 3ml INH RQ6H - Lasix 40mg po daily - d/c Azithromycin 500mg IVPB daily (started on 09/15/18 stopped on 09/19/18) - d/c Rocephin 1gm IVPB daily (started on 09/15/18, stopped on 09/19/18) - start Azithromycin 500mg po daily (to be completed on 09/21/18) Status: Acute (2) Obesity hypoventilation syndrome Assessment & Plan: Bipap at night Status: Acute (3) Pulmonary vascular congestion Assessment & Plan: Chest X-ray: Moderate to severe venous congestion. Moderate left pleural effusion. Right hilar prominence. Patchy increased markings at the lung bases. Enlarged ectatic aorta with calcification at the aortic knob. Cardiomegaly. - Lasix 40mg po daily Status: Acute (4) Hypertension Assessment & Plan: - Amlodipine 10mg PO daily Status: Acute (5) Blood glucose elevated Assessment & Plan: - HGB a1c: 5.5 - Lipid panel: TG 77, Chol 200, LDL 142, HDL 36 Status: Acute (6) Prophylactic measure Assessment & Plan: - DVT: Lovenox 40mg SC daily - GI: Protonix 40mg po daily - continue home Ergocalciferol 1 cap PO qWK - PT: Will benefit from Therapy Ex and gait training Status: Acute All management/orders per Dr. Brandt. Dispo: Pending [facility] authorization to [facility]
[2018-09-20] MEDS: Enoxaparin 40 mg Syringe SC SCH (09:54)
[2018-09-20] MEDS: Pantoprazole 40 mg EC Tab PO SCH (09:57)
[2018-09-21 07:27] LABS: BASO % 0.2 % (0.0-2.0); EOS % 0.3 % (0.0-4.0); HEMOGLOBIN 13.4 g/dL (11.0-16.0); LYMPH # 1.8 K/uL (1.0-4.3); LYMPH % 20.2 % (20.0-40.0); MEAN CELL VOLUME 100.2 fL (81.0-99.0); MEAN CORPUSCULAR HEMOGLOBIN 33.7 pg (27.0-31.0); MEAN CORPUSCULAR HGB CONC 33.6 g/dL (33.0-37.0); MEAN PLATELET VOLUME 8.8 fL (7.2-11.7); MONO # 0.7 K/uL (0.0-0.8); MONO % 7.8 % (0.0-10.0); NEUT # 6.3 K/uL (1.8-7.0); NEUT % 71.5 % (50.0-75.0); NRBC % 0.1 % (0.0-2.0); RBC 3.98 Mil/uL (3.80-5.20); RED CELL DISTRIBUTION WIDTH 12.5 % (11.5-14.5); WHITE BLOOD COUNT 8.8 K/uL (4.8-10.8)
[2018-09-21 07:53] LABS: ALB/GLOB RATIO 1.2 (1.0-2.1); ALBUMIN 3.9 g/dL (3.5-5.0); ALT/SGPT 88 U/L (9-52); AST/SGOT 42 U/L (14-36); BLOOD UREA NITROGEN 29 mg/dL (7-17); GFR NON-AFRICAN AMERICAN > 60
[2018-09-21] MEDS: Pantoprazole 40 mg EC Tab PO SCH (11:00)
[2018-09-21] MEDS: Enoxaparin 40 mg Syringe SC SCH (11:00)
[2018-09-22 08:23] LABS: BASO % 0.1 % (0.0-2.0); EOS % 0.4 % (0.0-4.0); HEMOGLOBIN 13.3 g/dL (11.0-16.0); LYMPH # 1.9 K/uL (1.0-4.3); LYMPH % 21.8 % (20.0-40.0); MEAN CELL VOLUME 100.8 fL (81.0-99.0); MEAN CORPUSCULAR HEMOGLOBIN 33.4 pg (27.0-31.0); MEAN CORPUSCULAR HGB CONC 33.2 g/dL (33.0-37.0); MONO # 0.6 K/uL (0.0-0.8); MONO % 7.3 % (0.0-10.0); NEUT # 6.2 K/uL (1.8-7.0); NEUT % 70.4 % (50.0-75.0); NRBC % 0.1 % (0.0-2.0); RBC 3.97 Mil/uL (3.80-5.20); RED CELL DISTRIBUTION WIDTH 12.5 % (11.5-14.5); WHITE BLOOD COUNT 8.8 K/uL (4.8-10.8)
[2018-09-22 08:42] LABS: ALB/GLOB RATIO 1.2 (1.0-2.1); ALBUMIN 3.9 g/dL (3.5-5.0); ALT/SGPT 71 U/L (9-52); AST/SGOT 42 U/L (14-36); BLOOD UREA NITROGEN 29 mg/dL (7-17); CALCIUM 9.1 mg/dl (8.6-10.4); GFR NON-AFRICAN AMERICAN > 60
[2018-09-22] MEDS: Pantoprazole 40 mg EC Tab PO SCH (09:43)
[2018-09-22] MEDS: Enoxaparin 40 mg Syringe SC SCH (09:43)
[2018-09-22] MEDS ORDERED: Ergocalciferol 50,000 Intl Units Cap PO SCH (10:00)
[2018-09-22] MEDS: Potassium Chloride 20 mEq ER Tab PO SCH (14:51)
[2018-09-22 18:03] VITALS: RESP 20
[2018-09-23 07:33] LABS: BASO # 0.1 K/uL (0.0-0.2); BASO % 0.6 % (0.0-2.0); EOS % 0.3 % (0.0-4.0); HEMOGLOBIN 12.7 g/dL (11.0-16.0); LYMPH # 1.7 K/uL (1.0-4.3); LYMPH % 19.3 % (20.0-40.0); MEAN CELL VOLUME 101.1 fL (81.0-99.0); MEAN CORPUSCULAR HEMOGLOBIN 33.1 pg (27.0-31.0); MEAN CORPUSCULAR HGB CONC 32.7 g/dL (33.0-37.0); MEAN PLATELET VOLUME 8.9 fL (7.2-11.7); MONO # 0.5 K/uL (0.0-0.8); MONO % 5.8 % (0.0-10.0); NEUT # 6.6 K/uL (1.8-7.0); RBC 3.84 Mil/uL (3.80-5.20); RED CELL DISTRIBUTION WIDTH 12.5 % (11.5-14.5); WHITE BLOOD COUNT 8.9 K/uL (4.8-10.8)
[2018-09-23 08:14] LABS: ALB/GLOB RATIO 1.2 (1.0-2.1); ALBUMIN 3.9 g/dL (3.5-5.0); ALT/SGPT 64 U/L (9-52); AST/SGOT 33 U/L (14-36); BLOOD UREA NITROGEN 29 mg/dL (7-17); CALCIUM 8.9 mg/dl (8.6-10.4); GFR NON-AFRICAN AMERICAN > 60
--- NOTE | 2018-09-23 09:31 | CP.PCM.PN ---
Subjective - Date & Time of Evaluation Date of Evaluation: 09/23/18 Time of Evaluation: 07:00 - Subjective Subjective: Progress Note for Dr. Brandt Patient seen and examined at bedside this morning. Patient reports to have improved coughing and shortness of breath. Patient still complains of bilateral knee pain. She denies fever, chills, shortness of breath, chest pain, nausea, vomiting, or diarrhea. Objective - Vital Signs/Intake and Output Vital Signs (last 24 hours): Temp Pulse Resp BP Pulse Ox 97.3 F L 85 20 136/84 95 09/23/18 07:00 09/23/18 07:00 09/23/18 07:00 09/23/18 07:00 09/23/18 07:00 - Medications Medications: Current Medications Amlodipine Besylate (Norvasc) 10 mg PO DAILY [facility] Last Admin: 09/22/18 09:43 Dose: 10 mg Enoxaparin Sodium (Lovenox) 40 mg SC DAILY [facility] Last Admin: 09/22/18 09:43 Dose: 40 mg Ergocalciferol (Drisdol 50,000 Intl Units Cap) 1 cap PO QWK [facility] Last Admin: 09/22/18 09:44 Dose: 1 cap Furosemide (Lasix) 40 mg PO DAILY [facility] Last Admin: 09/22/18 09:43 Dose: 40 mg Pantoprazole Sodium (Protonix Ec Tab) 40 mg PO DAILY [facility] Last Admin: 09/22/18 09:43 Dose: 40 mg Potassium Chloride (K-Dur 20 Meq Er Tab) 20 meq PO DAILY [facility] Last Admin: 09/22/18 14:51 Dose: 20 meq Prednisone (Prednisone Tab) 30 mg PO DAILY [facility] - Labs Labs: 09/23/18 07:23 09/23/18 07:23 - Additional Findings Additional findings: - Constitutional Appears: Non-toxic, No Acute Distress - Head Exam Head Exam: ATRAUMATIC, NORMAL INSPECTION, NORMOCEPHALIC - Eye Exam Eye Exam: EOMI, Normal appearance - ENT Exam ENT Exam: Mucous Membranes Moist - Respiratory Exam Respiratory Exam: NORMAL BREATHING PATTERN - Cardiovascular Exam Cardiovascular Exam: REGULAR RHYTHM, RRR, +S1, +S2 - GI/Abdominal Exam GI & Abdominal Exam: Soft, Normal Bowel Sounds. absent: Tenderness Additional comments: morbidly obese - Extremities Exam Extremities Exam: Normal Inspection, Tenderness. absent: Pedal Edema Additional comments: b/l knee limited range of motion due to pain, no loss of sensation, reflex intact - Neurological Exam Neurological Exam: Alert, Awake, Oriented x3 - Psychiatric Exam Psychiatric exam: Normal Affect, Normal Mood - Skin Skin Exam: Intact, Normal Color, Warm Assessment and Plan - Assessment and Plan (Free Text) Assessment: (1) COPD exacerbation Assessment & Plan: Chest X-ray: Moderate to severe venous congestion. Moderate left pleural effusion. Right hilar prominence. Patchy increased markings at the lung bases. Enlarged ectatic aorta with calcification at the aortic knob. Cardiomegaly. - Prednisone taper (30mg to finish on 09/25, then 20mg for 3 days, then 10mg for 5 days) - Duonebs 3ml INH RQ6H - Lasix 40mg po daily - d/c Azithromycin 500mg IVPB daily (started on 09/15/18 stopped on 09/19/18) - d/c Rocephin 1gm IVPB daily (started on 09/15/18, stopped on 09/19/18) - start Azithromycin 500mg po daily (to be completed on 09/21/18) Status: Acute (2) Obesity hypoventilation syndrome Assessment & Plan: Bipap at night Status: Acute (3) Pulmonary vascular congestion Assessment & Plan: Chest X-ray: Moderate to severe venous congestion. Moderate left pleural effusion. Right hilar prominence. Patchy increased markings at the lung bases. Enlarged ectatic aorta with calcification at the aortic knob. Cardiomegaly. - Lasix 40mg po daily - KDur 20 meq po daily Status: Acute (4) Hypertension Assessment & Plan: - Amlodipine 10mg PO daily Status: Acute (5) Blood glucose elevated Assessment & Plan: - HGB a1c: 5.5 - Lipid panel: TG 77, Chol 200, LDL 142, HDL 36 Status: Acute (6) Prophylactic measure Assessment & Plan: - DVT: Lovenox 40mg SC daily - GI: Protonix 40mg po daily - continue home Ergocalciferol 1 cap PO qWK - PT: Will benefit from Therapy Ex and gait training Status: Acute All management/orders per Dr. Brandt. Dispo: Patient stable for discharge to [facility]
[2018-09-23] MEDS: Potassium Chloride 20 mEq ER Tab PO SCH (09:43)
[2018-09-23] MEDS: Pantoprazole 40 mg EC Tab PO SCH (09:43)
[2018-09-23] MEDS: Enoxaparin 40 mg Syringe SC SCH (09:44)
[2018-09-23 15:43] VITALS: BP 109/77; PULSE 79; TEMP 98.1; O2SAT 96
--- NOTE | 2018-09-27 06:13 | DS ---
HOSPITAL COURSE: The patient was admitted to the hospital with chief complaints of shortness of breath, weakness, respiratory failure. The patient was placed on BiPAP, supportive care, oxygen, pain medication, physical therapy. Discharged to be followed as outpatient. Elie Brandt MD
--- NOTE | 2018-10-02 13:37 | PN ---
DATE: 10/02/2018 The patient was admitted to the hospital with shortness of breath. Chest x-ray, no change from previous x-rays. CAT scan similar. The patient does not have pneumonia, it is mostly the patient has COPD, sleep apnea,and obesity hypoventilation syndrome. Elie Brandt MD
== END 2018-09-23 20:38 | DRG 190 ==
LOC: C.ER 10:11 → C.9E 12:50 → C.5S 09-16 10:21 → OBSVTOIN 09-18 15:26 → C.5S 09-20 00:10
PROVIDERS: ADMIT Internal Medicine Pulmonary Disease; ATTEND Internal Medicine Pulmonary Disease
PROC: 5A09557 Assistance with Respiratory Ventilation, Greater than 96 Consecutive Hours, Continuous Positive Airway Pressure (ICD-10-PCS; principal; 2018-09-15)
DX: J44.1 Chronic obstructive pulmonary disease with (acute) exacerbation (principal); J96.90 Respiratory failure, unspecified, unspecified whether with hypoxia or hypercapnia; E66.2 Morbid (severe) obesity with alveolar hypoventilation; Z68.41 Body mass index [BMI] 40.0-44.9, adult; J44.0 Chronic obstructive pulmonary disease with (acute) lower respiratory infection; G47.30 Sleep apnea, unspecified; I11.0 Hypertensive heart disease with heart failure; I50.9 Heart failure, unspecified; I70.0 Atherosclerosis of aorta; I77.819 Aortic ectasia, unspecified site; I27.81 Cor pulmonale (chronic)

== ENCOUNTER 2018-11-22 14:10 | Inpatient (IN) | payer MEDICARE, MEDICAID ==
--- NOTE | 2018-11-22 15:27 | C.PDOC ---
History Of Present Illness 83 year old female brought to the ED by family for evaluation of confusion and altered mental status noticed at around 0800 today. Patient reports urinary frequency and dysuria over the the last several days. As per son, patient is a lert and oriented x3 at baseline and is typically ambulatory with walker. Patient denies fever, chills, cough, chest pain, shortness of breath, vomiting, diarrhea. Patient has PMHx of COPD on home O2, 3L. She admits to current/chronic mild SOB. Time Seen by Provider: 11/22/18 14:13 Chief Complaint (Nursing): Altered Mental Status History Per: Patient, Family History/Exam Limitations: Clinical Condition Onset/Duration Of Symptoms: Hrs Onset Of Symptoms: Cannot Confirm Onset Current Symptoms Are (Timing): Still Present Usual Baseline: Alert Oriented (x3) Additional History Per: Patient Past Medical History Reviewed: Historical Data, Nursing Documentation, Vital Signs Vital Signs: Last Vital Signs Temp 97.9 F 11/22/18 14:42 Pulse 93 H 11/22/18 14:42 Resp 20 11/22/18 14:42 BP 149/80 11/22/18 14:42 Pulse Ox 97 11/22/18 14:42 - Medical History PMH: Arthritis, Asthma, CHF, COPD, HTN, Sleep Apnea, Chronic Pain Surgical History: Cholecystectomy - [facility] Procedures ASSISTANCE WITH RESPIRATORY VENTILATION, 24-96 HRS, CPAP (06/26/18) ASSISTANCE WITH RESPIRATORY VENTILATION, >96 HRS, CPAP (09/18/18) Family History: States: No Known Family Hx - Social History Hx Tobacco Use: No Hx Alcohol Use: No Hx Substance Use: No - Immunization History Hx Tetanus Toxoid Vaccination: No Hx Influenza Vaccination: No Hx Pneumococcal Vaccination: No Review Of Systems Review Of Systems: ROS cannot be obtained secondary to pt's inabilty to answer questions. Physical Exam - Physical Exam Appears: Non-toxic, No Acute Distress, Other (morbidly obese ) Skin: Normal Color, Warm, Dry Head: Atraumatic, Normacephalic Eye(s): bilateral: Normal Inspection Oral Mucosa: Moist Neck: Supple Cardiovascular: Rhythm Regular Respiratory: No Accessory Muscle Use, Rales (mild, at the B/L bases ), No Rhonchi, No Wheezing Gastrointestinal/Abdominal: Bowel Sounds, Soft, Tenderness (mild, suprapubic ), No Guarding, No Rebound Back: Normal Inspection, No CVA Tenderness Extremity: Normal ROM, No Pedal Edema, No Calf Tenderness Pulses: Left Dorsalis Pedis: Normal, Right Dorsalis Pedis: Normal Neurological/Psych: Normal Motor, Normal Sensation, No Dysarthria, Other (awake, alert, mildly confused ) ED Course And Treatment - Laboratory Results Result Diagrams: 12/02/18 06:29 12/02/18 06:29 ECG: Interpreted By Me, Viewed By Me ECG Rhythm: Sinus Rhythm ECG Interpretation: Abnormal Interpretation Of ECG: Sinus Rhythm at 97bpm with PVCs, left axis deviation, and right bundle branch block. No acute ST/T wave changes. Rate From EC O2 Sat by Pulse Oximetry: 97 - Other Rad CXR X-Ray: Viewed By Me, Read By Radiologist Interpretation: Date of service: 11/22/2018. PROCEDURE: CHEST RADIOGRAPH, 1 VIEW. HISTORY: SOB. COMPARISON: 09/15/2018. FINDINGS: LUNGS: There is redemonstration of moderate pulmonary venous congestion. PLEURA: Suspect small left pleural effusion. No pneumothorax or large right pleural effusion. CARDIOVASCULAR: Persistent moderate cardiomegaly with prominent central vasculature. There is unfolding of the aorta. There are aortic atherosclerotic calcifications present. OSSEOUS STRUCTURES: Within normal limits for the iman ent's age. VISUALIZED UPPER ABDOMEN: Normal. OTHER FINDINGS: None. IMPRESSION: Moderate pulmonary venous congestion and small left pleural effusion. Persistent moderate cardiomegaly with unfolding of the aorta. - CT Scan/US CT Head Other Rad Studies (CT/US): Read By Radiologist, Radiology Report Reviewed CT/US Interpretation: Date of service: 11/22/2018. PROCEDURE: CT HEAD WITHOUT CONTRAST. HISTORY: AMS. COMPARISON: None available. TECHNIQUE: Axial computed tomography images were obtained through the head/brain without intravenous contrast. Radiation dose: Total exam DLP = 1367.36 mGy-cm. This CT exam was performed using one or more of the following dose reduction techniques: Automated exposure control, adjustment of the mA and/or kV according to patient size, and/or use of iterative reconstruction technique. FINDINGS: HEMORRHAGE: No intracranial hemorrhage. BRAIN: There are mild chronic microangiopathic changes. There is no mass, mass effect or abnormal extra-axial fluid collection. There is no territorial infarction. The midline sagittal structures are normal.There are coarse atherosclerotic calcifications in the cavernous carotid arteries. VENTRICLES: There is mild age-related global parenchymal volume loss and proportionate enlargement of the ventricles and cortical sulci. CALVARIUM: There is no calvarial fracture or extracranial soft tissue swelling. PARANASAL SINUSES: Predominantly clear. MASTOID AIR CELLS: Predominantly clear. OTHER FINDINGS: None. IMPRESSION: No acute intracranial abnormality. Mild chronic microangiopathic changes and mild age-related global parenchymal volume loss. Progress Note: Blood work, UA, CT Head, CXR, EKG ordered and reviewed. IV solumedrol and albuterol neb given. - Physician Consult Information Physician Contacted: Elie Brandt Outcome Of Conversation: Discussed patient with PMD, he states patient is typically hypercapnic (due to severe COPD) and requests ABG and Bipap. Agrees with admission to his service for AMS, COPD, hypercapnea. NIHSS Stroke Scale - Date/Time Evaluation Performed Date Performed: 11/22/18 Time Performed: 14:50 When Was NIHSS Performed: Baseline - How Severe is the Stoke Level of Consciousness: 0=Alert LOC to Questions: 0=Both comments correct LOC to commands: 0=Obeys both correctly Best Gaze: 0=Normal Visual: 0=No visual loss Facial: 0=Normal Motor Arm - Left: 0=No drift Motor Arm - Right: 0=No drift Motor Leg - Left: 0=No drift Motor Leg - Right: 0=No drift Limb Ataxia: 0=Absent Sensory: 0=Normal Best Language: 0=No aphasia Dysarthia: 0=Normal articulation Extinction & Inattention (Neglect): 0=Normal, no object Score: 0 rTPA Inclusion/Exclusion - Refusal of Treatment Patient Refused Treatment: No - Inclusion Criteria for Altepase All of the below criteria for inclusion were reviewed: No Patient is 18 years or Older: Yes Clinical DX Ischemic Stroke Cause Neurological Deficit: No Time of Onset Established Less Than 270 Mins Before TX Begin: No Risk/Benefit Discussed With Patient/Family Member Present: No Disposition - Disposition Disposition: HOSPITALIZED Disposition Time: 18:25 Condition: STABLE - Clinical Impression Clinical Impression: Altered mental status, COPD (chronic obstructive pulmonary disease), Hypercarbia - Scribe Statement The provider has reviewed the documentation as recorded by the Scribe (Faith Oglesby) Provider Attestation: All medical record entries made by the Scribe were at my direction and p ersonally dictated by me. I have reviewed the chart and agree that the record accurately reflects my personal performance of the history, physical exam, medical decision making, and the department course for this patient. I have also personally directed, reviewed, and agree with the discharge instructions and disposition. Decision To Admit - Pt Status Changed To: Hospital Disposition Of: Inpatient - Admit Certification Admit to Inpatient:: After my assessment, the patient will require hospitalization for at least two midnights. This is because of the severity of symptoms shown, intensity of services needed, and/or the medical risk in this patient being treated as an outpatient. - InPatient: Physician Admission Certification:: see notes - . Bed Request Type: Telemetry Admitting Physician: Elie Brandt Patient Diagnosis: Altered mental status, COPD (chronic obstructive pulmonary disease), Hypercarbia
[2018-11-22 15:32] LABS: BASO % 0.6 % (0.0-2.0); EOS # 0.1 K/uL (0.0-0.7); EOS % 1.2 % (0.0-4.0); HEMOGLOBIN 12.5 g/dL (11.0-16.0); LYMPH % 15.6 % (20.0-40.0); MEAN CELL VOLUME 100.8 fL (81.0-99.0); MEAN CORPUSCULAR HEMOGLOBIN 33.1 pg (27.0-31.0); MEAN CORPUSCULAR HGB CONC 32.9 g/dL (33.0-37.0); MEAN PLATELET VOLUME 8.5 fL (7.2-11.7); MONO # 0.4 K/uL (0.0-0.8); MONO % 6.9 % (0.0-10.0); NEUT # 4.8 K/uL (1.8-7.0); NEUT % 75.7 % (50.0-75.0); RBC 3.78 Mil/uL (3.80-5.20); RED CELL DISTRIBUTION WIDTH 12.6 % (11.5-14.5); WHITE BLOOD COUNT 6.3 K/uL (4.8-10.8)
--- NOTE | 2018-11-22 15:34 | RAD ---
Date of service: 11/22/2018 PROCEDURE: CHEST RADIOGRAPH, 1 VIEW HISTORY: SOB COMPARISON: 09/15/2018 FINDINGS: LUNGS: There is redemonstration of moderate pulmonary venous congestion. PLEURA: Suspect small left pleural effusion. No pneumothorax or large right pleural effusion. CARDIOVASCULAR: Persistent moderate cardiomegaly with prominent central vasculature. There is unfolding of the aorta. There are aortic atherosclerotic calcifications present. OSSEOUS STRUCTURES: Within normal limits for the patient's age. VISUALIZED UPPER ABDOMEN: Normal. OTHER FINDINGS: None. IMPRESSION: Moderate pulmonary venous congestion and small left pleural effusion. Persistent moderate cardiomegaly with unfolding of the aorta.
[2018-11-22 15:53] LABS: ALB/GLOB RATIO 1.2 (1.0-2.1); ALBUMIN 4.3 g/dL (3.5-5.0); ALT/SGPT 14 U/L (9-52); AST/SGOT 24 U/L (14-36); BLOOD UREA NITROGEN 9 mg/dL (7-17); CALCIUM 9.7 mg/dl (8.6-10.4); GFR NON-AFRICAN AMERICAN > 60
--- NOTE | 2018-11-22 15:56 | CT ---
Date of service: 11/22/2018 PROCEDURE: CT HEAD WITHOUT CONTRAST. HISTORY: AMS COMPARISON: None available. TECHNIQUE: Axial computed tomography images were obtained through the head/brain without intravenous contrast. Radiation dose: Total exam DLP = 1367.36 mGy-cm. This CT exam was performed using one or more of the following dose reduction techniques: Automated exposure control, adjustment of the mA and/or kV according to patient size, and/or use of iterative reconstruction technique. FINDINGS: HEMORRHAGE: No intracranial hemorrhage. BRAIN: There are mild chronic microangiopathic changes. There is no mass, mass effect or abnormal extra-axial fluid collection. There is no territorial infarction. The midline sagittal structures are normal.There are coarse atherosclerotic calcifications in the cavernous carotid arteries. VENTRICLES: There is mild age-related global parenchymal volume loss and proportionate enlargement of the ventricles and cortical sulci. CALVARIUM: There is no calvarial fracture or extracranial soft tissue swelling. PARANASAL SINUSES: Predominantly clear. MASTOID AIR CELLS: Predominantly clear. OTHER FINDINGS: None. IMPRESSION: No acute intracranial abnormality. Mild chronic microangiopathic changes and mild age-related global parenchymal volume loss.
[2018-11-22 16:05] LABS: B-TYPE NATRIURETIC PEPTIDE 79.8 pg/mL (0-900); CK-MB 0.31 ng/mL (0.0-3.38)
[2018-11-22 17:58] LABS: URINE BILIRUBIN NEGATIVE (NEGATIVE); URINE BLOOD NEGATIVE (NEGATIVE); URINE CLARITY Clear (Clear); URINE COLOR Straw (YELLOW); URINE GLUCOSE (UA) NORMAL (Normal); URINE LEUKOCYTE ESTERASE NEG Leu/uL (Negative); URINE PROTEIN NEGATIVE (NEGATIVE); URINE UROBILINOGEN NORMAL mg/dL (0.2-1.0)
[2018-11-22] MEDS ORDERED: Albuterol 0.083% Inhal Sol (2.5 mg/3 mL) UD IH STA (18:24)
[2018-11-22] MEDS ORDERED: Albuterol 0.083% Inhal Sol (2.5 mg/3 mL) UD ONE (18:31)
[2018-11-22 18:42] LABS: ABG ALLEN TEST POS; ARTERIAL BLOOD GAS HCO3 30.1 mmol/L (21-28); ARTERIAL BLOOD GAS O2 SAT 99.4 % (95-98); ARTERIAL BLOOD GAS PCO2 50 mm/Hg (35-45); ARTERIAL BLOOD GAS PH 7.42 (7.35-7.45); ARTERIAL BLOOD GAS PO2 126 mm/Hg (80-100); ARTERIAL BLOOD GAS TCO2 33.9 mmol/L (22-28)
[2018-11-22] MEDS ORDERED: Home Med 1 UNIT (Oxycodone Hcl/Acetaminophen [Percocet 10-325 Mg Tablet] 1 EACH) PO PRN (22:45)
[2018-11-22] MEDS ORDERED: Albuterol-Ipratrop 3 mg / 0.5 (3 ml) UD INH PRN (22:45)
[2018-11-22] MEDS ORDERED: Oxycodone/Acetaminophen 5/325 mg Tab PO PRN (23:27)
[2018-11-23 07:22] LABS: BASO % 0.4 % (0.0-2.0); HEMOGLOBIN 13.1 g/dL (11.0-16.0); LYMPH # 0.8 K/uL (1.0-4.3); LYMPH % 13.2 % (20.0-40.0); MEAN CELL VOLUME 99.3 fL (81.0-99.0); MEAN CORPUSCULAR HEMOGLOBIN 33.1 pg (27.0-31.0); MEAN CORPUSCULAR HGB CONC 33.3 g/dL (33.0-37.0); MEAN PLATELET VOLUME 8.7 fL (7.2-11.7); MONO # 0.1 K/uL (0.0-0.8); MONO % 1.5 % (0.0-10.0); NEUT % 84.9 % (50.0-75.0); NRBC % 0.1 % (0.0-2.0); RBC 3.97 Mil/uL (3.80-5.20); RED CELL DISTRIBUTION WIDTH 12.3 % (11.5-14.5); WHITE BLOOD COUNT 5.8 K/uL (4.8-10.8)
[2018-11-23 07:43] LABS: ALB/GLOB RATIO 1.2 (1.0-2.1); ALBUMIN 4.6 g/dL (3.5-5.0); ALT/SGPT 9 U/L (9-52); AST/SGOT 28 U/L (14-36); BLOOD UREA NITROGEN 9 mg/dL (7-17); CALCIUM 10.1 mg/dl (8.6-10.4); GFR NON-AFRICAN AMERICAN > 60
[2018-11-23] MEDS ORDERED: DICLOFENAC SODIUM 75 MG PO SCH (10:00)
[2018-11-23] MEDS: Enoxaparin 40 mg Syringe SC SCH (10:27)
[2018-11-23] MEDS: MethylPREDNISolone 40 mg Vial IVP SCH (10:27)
[2018-11-23] MEDS: Diclofenac Sodium Delayed Release 50 mg EC Tab PO SCH ×3 (11:00→17:22)
[2018-11-24] MEDS: MethylPREDNISolone 40 mg Vial IVP SCH (10:00)
[2018-11-24] MEDS: Diclofenac Sodium Delayed Release 50 mg EC Tab PO SCH ×3 (10:07→17:02)
[2018-11-24] MEDS: Enoxaparin 40 mg Syringe SC SCH (10:07)
--- NOTE | 2018-11-25 09:05 | CP.PCM.PN ---
Subjective - Date & Time of Evaluation Date of Evaluation: 11/25/18 Time of Evaluation: 09:00 - Subjective Subjective: Medicine Progress Note for Dr. Brandt: Patient was seen and examined at bedside in the AM. Patient was awake and oriented to person. Patient's son was at bedside. Patient did not allow to examine her. Objective - Vital Signs/Intake and Output Vital Signs (last 24 hours): Temp Pulse Resp BP Pulse Ox 98.5 F 99 H 20 134/86 94 L 11/25/18 07:00 11/25/18 07:00 11/25/18 07:00 11/25/18 07:00 11/25/18 07:00 Intake and Output: 11/25/18 11/25/18 06:59 18:59 Intake Total 100 Output Total 0 Balance 100 - Medications Medications: Current Medications Albuterol/Ipratropium (Duoneb 3 Mg/0.5 Mg (3 Ml) Ud) 3 ml INH RQ6 PRN PRN Reason: Shortness of Breath Amlodipine Besylate (Norvasc) 10 mg PO DAILY [facility] Last Admin: 11/24/18 10:00 Dose: Not Given Diclofenac Sodium (Voltaren) 50 mg PO TID [facility] Last Admin: 11/24/18 17:02 Dose: 50 mg Enoxaparin Sodium (Lovenox) 40 mg SC DAILY [facility] Last Admin: 11/24/18 10:07 Dose: Not Given Ergocalciferol (Drisdol 50,000 Intl Units Cap) 1 cap PO QWK [facility] Furosemide (Lasix) 40 mg PO DAILY [facility] Last Admin: 11/24/18 10:00 Dose: Not Given Methylprednisolone (Solu-Medrol) 40 mg IVP DAILY [facility] Last Admin: 11/24/18 10:00 Dose: 40 mg Oxycodone/Acetaminophen (Percocet 5/325 Mg Tab) 2 tab PO Q6 PRN PRN Reason: Pain, moderate (4-7) Stop: 11/26/18 00:01 - Labs Labs: 11/23/18 07:10 11/23/18 07:10 - Constitutional Appears: No Acute Distress, Confused - Head Exam Head Exam: ATRAUMATIC, NORMAL INSPECTION - Eye Exam Eye Exam: EOMI, Normal appearance - ENT Exam ENT Exam: Mucous Membranes Moist Assessment and Plan - Assessment and Plan (Free Text) Assessment: Altered Mental Status possibly secondary to COPD exacerbation - Head CT: No acute intracranial abnormality. Mild chornic microangiopathic changes and mild age-related global parenchymal volume loss. - Chest Xray: Moderate pulmonary venous congestion and small left pleural effusion. Persistent moderate cardiomegaly with unfolding of the aorta. - Bipap continuously - ABG: CO2 38; O2 79; HCO3 29.1; pH 7.49 - Urine and blood culture negative - Solumedrol 40mg IV daily - Lasix 40mg po daily Obesity hypoventilation syndrome - Bipap continuously Hypokalemia - repleate PRN - Continue to monitor Hypertension - Amlodipine 10mg PO daily - ECHO (07/02/18): EF 55-60% - HGB a1c: 5.5 - Lipid panel: TG 77, Chol 200, LDL 142, HDL 36 Prophylactic measure - DVT: Lovenox 40mg SC daily - Physical Therapy Case discussed with Dr. Rikki Amaro PGY-2
[2018-11-25] MEDS: Enoxaparin 40 mg Syringe SC SCH (10:09)
[2018-11-25] MEDS: Diclofenac Sodium Delayed Release 50 mg EC Tab PO SCH ×3 (10:09→18:03)
[2018-11-25] MEDS: MethylPREDNISolone 40 mg Vial IVP SCH (10:10)
[2018-11-25 11:27] LABS: BASO % 0.2 % (0.0-2.0); EOS % 0.1 % (0.0-4.0); HEMOGLOBIN 13.3 g/dL (11.0-16.0); LYMPH # 1.2 K/uL (1.0-4.3); LYMPH % 15.8 % (20.0-40.0); MEAN CORPUSCULAR HEMOGLOBIN 33.7 pg (27.0-31.0); MEAN CORPUSCULAR HGB CONC 33.7 g/dL (33.0-37.0); MEAN PLATELET VOLUME 8.9 fL (7.2-11.7); MONO # 0.6 K/uL (0.0-0.8); MONO % 8.1 % (0.0-10.0); NEUT # 5.5 K/uL (1.8-7.0); NEUT % 75.8 % (50.0-75.0); RBC 3.95 Mil/uL (3.80-5.20); RED CELL DISTRIBUTION WIDTH 12.7 % (11.5-14.5); WHITE BLOOD COUNT 7.3 K/uL (4.8-10.8)
[2018-11-25 11:41] LABS: ALB/GLOB RATIO 1.2 (1.0-2.1); ALBUMIN 4.3 g/dL (3.5-5.0); ALT/SGPT 42 U/L (9-52); AST/SGOT 57 U/L (14-36); BLOOD UREA NITROGEN 22 mg/dL (7-17); CALCIUM 9.9 mg/dl (8.6-10.4); GFR NON-AFRICAN AMERICAN > 60
[2018-11-25 12:16] LABS: ABG ALLEN TEST POS; ARTERIAL BLOOD GAS HCO3 29.1 mmol/L (21-28); ARTERIAL BLOOD GAS HEMOGLOBIN 13.4 g/dL (11.7-17.4); ARTERIAL BLOOD GAS O2 SAT 98.1 % (95-98); ARTERIAL BLOOD GAS PCO2 38 mm/Hg (35-45); ARTERIAL BLOOD GAS PH 7.49 (7.35-7.45); ARTERIAL BLOOD GAS PO2 79 mm/Hg (80-100); ARTERIAL BLOOD GAS TCO2 30.2 mmol/L (22-28)
[2018-11-25] MEDS ORDERED: Potassium Chloride 20 mEq ER Tab PO ONE (13:13)
--- NOTE | 2018-11-25 14:53 | CARD ---
APPROVED REPORT Date of service: 11/22/2018 EKG Measurement Heart [id number] NM [id number] <Conclusion> Sinus rhythm with premature supraventricular complexes Right bundle branch block Abnormal ECG
[2018-11-26 07:24] LABS: BASO % 0.2 % (0.0-2.0); EOS % 0.1 % (0.0-4.0); LYMPH % 13.9 % (20.0-40.0); MEAN CELL VOLUME 100.5 fL (81.0-99.0); MEAN CORPUSCULAR HEMOGLOBIN 33.1 pg (27.0-31.0); MEAN PLATELET VOLUME 8.9 fL (7.2-11.7); MONO # 0.6 K/uL (0.0-0.8); NEUT # 5.9 K/uL (1.8-7.0); NEUT % 77.8 % (50.0-75.0); NRBC % 0.1 % (0.0-2.0); RBC 3.92 Mil/uL (3.80-5.20); RED CELL DISTRIBUTION WIDTH 12.7 % (11.5-14.5); WHITE BLOOD COUNT 7.6 K/uL (4.8-10.8)
[2018-11-26 07:49] LABS: ALB/GLOB RATIO 1.2 (1.0-2.1); ALBUMIN 4.1 g/dL (3.5-5.0); ALT/SGPT 63 U/L (9-52); AST/SGOT 62 U/L (14-36); BLOOD UREA NITROGEN 24 mg/dL (7-17); CALCIUM 9.8 mg/dl (8.6-10.4); GFR NON-AFRICAN AMERICAN > 60
[2018-11-26] MEDS: Enoxaparin 40 mg Syringe SC SCH (11:47)
[2018-11-26] MEDS: MethylPREDNISolone 40 mg Vial IVP SCH (11:47)
[2018-11-26] MEDS: Diclofenac Sodium Delayed Release 50 mg EC Tab PO SCH ×3 (11:47→17:27)
[2018-11-26] MEDS ORDERED: Potassium Chloride 20 mEq ER Tab PO ONE ×2 (13:15→16:00)
--- NOTE | 2018-11-26 17:20 | CP.PCM.PN ---
Subjective - Date & Time of Evaluation Date of Evaluation: 11/26/18 Time of Evaluation: 09:55 - Subjective Subjective: Medicine progress note ( Dr. Brandt's service) Patient was seen and examined. Patient was quite lethargic but responsive to pinch and name calling. Patient denies any discomfort. Objective - Vital Signs/Intake and Output Vital Signs (last 24 hours): Temp Pulse Resp BP Pulse Ox 97.3 F L 98 H 20 116/74 96 11/26/18 08:50 11/26/18 16:19 11/26/18 11:45 11/26/18 11:47 11/26/18 11:45 Intake and Output: 11/26/18 11/26/18 06:59 18:59 Intake Total 200 Balance 200 - Medications Medications: Current Medications Albuterol/Ipratropium (Duoneb 3 Mg/0.5 Mg (3 Ml) Ud) 3 ml INH RQ6 PRN PRN Reason: Shortness of Breath Amlodipine Besylate (Norvasc) 10 mg PO DAILY [facility] Last Admin: 11/26/18 11:47 Dose: 10 mg Diclofenac Sodium (Voltaren) 50 mg PO TID [facility] Last Admin: 11/26/18 14:39 Dose: 50 mg Enoxaparin Sodium (Lovenox) 40 mg SC DAILY [facility] Last Admin: 11/26/18 11:47 Dose: 40 mg Ergocalciferol (Drisdol 50,000 Intl Units Cap) 1 cap PO QWK [facility] Furosemide (Lasix) 40 mg PO DAILY [facility] Last Admin: 11/26/18 11:47 Dose: 40 mg Methylprednisolone (Solu-Medrol) 40 mg IVP DAILY [facility] Last Admin: 11/26/18 11:47 Dose: 40 mg - Labs Labs: 11/26/18 07:07 11/26/18 07:07 - Constitutional Appears: No Acute Distress - Head Exam Head Exam: ATRAUMATIC - Eye Exam Eye Exam: EOMI - ENT Exam ENT Exam: Mucous Membranes Dry - Respiratory Exam Respiratory Exam: NORMAL BREATHING PATTERN - Cardiovascular Exam Cardiovascular Exam: REGULAR RHYTHM, +S1, +S2 - GI/Abdominal Exam GI & Abdominal Exam: Soft, Normal Bowel Sounds - Extremities Exam Extremities Exam: Normal Inspection. absent: Pedal Edema - Neurological Exam Neurological Exam: absent: Awake, Oriented x3 - Psychiatric Exam Psychiatric exam: Flat Affect - Skin Skin Exam: Normal Color Assessment and Plan (1) Altered mental status Assessment & Plan: Imaging: - Head CT: No acute intracranial abnormality. Mild chornic microangiopathic changes and mild age-related global parenchymal volume loss. - Chest Xray: Moderate pulmonary venous congestion and small left pleural effusion. Persistent moderate cardiomegaly with unfolding of the aorta. Labs: - ABG: CO2 38; O2 79; HCO3 29.1; pH 7.49 - Urine and blood culture negative - Ammonia < 9 Possibly 2/2 dehydration * PO challenge Status: Acute (2) Heart failure with preserved ejection fraction Assessment & Plan: Chest x-ray: Moderate pulmonary venous congestion and small left pleural effusion. Persistent moderate cardiomegaly with unfolding of the aorta ECHO (07/07): LV systolic function is normal. EJ (55-60%). Diastolic dysfunction. No AR. There is no mitral valve regurgitation noted. There is mild TR. There is no pulmonary hypertension and no pulmonic valvular regurgitation Medication: Lasix 40 PO daily switched 20mg IV daily Status: Acute (3) Hypokalemia Assessment & Plan: Repleted appropriately Continue to monitor with am labs Status: Acute (4) Obesity hypoventilation syndrome Assessment & Plan: BiPAP at night or continuously Status: Acute (5) Hypertension Assessment & Plan: Amlodipine 10mg PO daily Status: Acute (6) Prophylactic measure Assessment & Plan: - DVT: Lovenox 40mg SC daily - Physical Therapy All plans and management discussed with Dr. Brandt Status: Acute
[2018-11-27] MEDS ORDERED: MethylPREDNISolone 40 mg Vial IVP SCH (10:00)
[2018-11-27] MEDS: Diclofenac Sodium Delayed Release 50 mg EC Tab PO SCH ×3 (10:50→21:50)
[2018-11-27] MEDS: Enoxaparin 40 mg Syringe SC SCH (10:50)
[2018-11-27 11:13] LABS: BASO # 0.1 K/uL (0.0-0.2); BASO % 0.6 % (0.0-2.0); EOS % 0.1 % (0.0-4.0); HEMOGLOBIN 14.3 g/dL (11.0-16.0); LYMPH # 2.1 K/uL (1.0-4.3); LYMPH % 20.9 % (20.0-40.0); MEAN CORPUSCULAR HEMOGLOBIN 33.2 pg (27.0-31.0); MEAN CORPUSCULAR HGB CONC 32.8 g/dL (33.0-37.0); MEAN PLATELET VOLUME 8.9 fL (7.2-11.7); MONO # 0.8 K/uL (0.0-0.8); MONO % 7.9 % (0.0-10.0); NEUT # 7.1 K/uL (1.8-7.0); NEUT % 70.5 % (50.0-75.0); NRBC % 0.1 % (0.0-2.0); RBC 4.31 Mil/uL (3.80-5.20); RED CELL DISTRIBUTION WIDTH 12.9 % (11.5-14.5); WHITE BLOOD COUNT 10.1 K/uL (4.8-10.8)
[2018-11-27 11:23] LABS: ALB/GLOB RATIO 1.3 (1.0-2.1); ALBUMIN 4.6 g/dL (3.5-5.0); CALCIUM 9.9 mg/dl (8.6-10.4)
--- NOTE | 2018-11-27 13:27 | CP.PCM.PN ---
Subjective - Date & Time of Evaluation Date of Evaluation: 11/27/18 Time of Evaluation: 10:20 - Subjective Subjective: Medicine note (Dr. Brandt's service) Patient was seen and examined at bedside with one of her son present. During this encounter, patient was very agitated and seems very upset at her son. Some of patient's speech at the time were incoherent and patient seems to be confused. Patient continued to report that she is doing well and does not have any complaints. In addition, patient refused physical examination. Also, patient states that she wants to throw herself on the floor, therefore, security was called in order to gently restrain the patient and 0.5mg IV of Ativan was given. Objective - Vital Signs/Intake and Output Vital Signs (last 24 hours): Temp Pulse Resp BP Pulse Ox 98.2 F 92 H 20 122/84 98 11/27/18 07:40 11/27/18 08:55 11/27/18 07:40 11/27/18 07:40 11/27/18 07:40 Intake and Output: 11/27/18 11/27/18 06:59 18:59 Intake Total 120 220 Output Total 0 Balance 120 220 - Medications Medications: Current Medications Albuterol/Ipratropium (Duoneb 3 Mg/0.5 Mg (3 Ml) Ud) 3 ml INH RQ6 PRN PRN Reason: Shortness of Breath Amlodipine Besylate (Norvasc) 10 mg PO DAILY [facility] Last Admin: 11/27/18 10:50 Dose: Not Given Diclofenac Sodium (Voltaren) 50 mg PO TID [facility] Last Admin: 11/27/18 10:50 Dose: Not Given Enoxaparin Sodium (Lovenox) 40 mg SC DAILY [facility] Last Admin: 11/27/18 10:50 Dose: Not Given Ergocalciferol (Drisdol 50,000 Intl Units Cap) 1 cap PO QWK [facility] Furosemide (Lasix) 20 mg IVP DAILY [facility] Last Admin: 11/27/18 10:50 Dose: Not Given Methylprednisolone (Solu-Medrol) 20 mg IVP DAILY [facility] Last Admin: 11/27/18 10:50 Dose: Not Given - Labs Labs: 11/27/18 11:01 11/27/18 11:01 - Constitutional Appears: Agitated, Confused - Head Exam Head Exam: ATRAUMATIC - Eye Exam Eye Exam: EOMI - ENT Exam ENT Exam: Mucous Membranes Dry (Vidhya) - Respiratory Exam Respiratory Exam: NORMAL BREATHING PATTERN Additional comments: On BiPap - Cardiovascular Exam Cardiovascular Exam: REGULAR RHYTHM, +S1, +S2 Additional comments: Patient refused the exam initially but allowed the exam after ativan 0.5mg IV given - GI/Abdominal Exam GI & Abdominal Exam: Soft, Normal Bowel Sounds - Extremities Exam Extremities Exam: Normal Inspection. absent: Calf Tenderness, Pedal Edema - Neurological Exam Neurological Exam: Alert, Awake. absent: Oriented x3 - Psychiatric Exam Psychiatric exam: Agitated - Skin Skin Exam: Normal Color Assessment and Plan (1) Altered mental status Assessment & Plan: Consultation: Neurology, Dr. Levy---> Help appreciated * F/u recommendation * F/u MRI without contrast Psychiatry, Dr. Boyd-----> help appreciated * F/U recommendation Imaging: - Head CT: No acute intracranial abnormality. Mild chornic microangiopathic changes and mild age-related global parenchymal volume loss. - Chest Xray: Moderate pulmonary venous congestion and small left pleural effusion. Persistent moderate cardiomegaly with unfolding of the aorta. Labs: - ABG: CO2 38; O2 79; HCO3 29.1; pH 7.49 - Urine and blood culture negative - Ammonia < 9 Possibly 2/2 dehydration * PO challenge Status: Acute (2) Heart failure with preserved ejection fraction Assessment & Plan: Chest x-ray: Moderate pulmonary venous congestion and small left pleural effusion. Persistent moderate cardiomegaly with unfolding of the aorta ECHO (07/07): LV systolic function is normal. EJ (55-60%). Diastolic dysfunction. No AR. There is no mitral valve regurgitation noted. There is mild TR. There is no pulmonary hypertension and no pulmonic valvular regurgitation Medication: Lasix 40 PO daily switched 20mg IV daily Status: Acute (3) Hypokalemia Assessment & Plan: Repleted appropriately Continue to monitor with am labs Status: Acute (4) Obesity hypoventilation syndrome Assessment & Plan: BiPAP at night or continuously Status: Acute (5) Hypertension Assessment & Plan: Amlodipine 10mg PO daily Status: Acute (6) Prophylactic measure Assessment & Plan: - DVT: Lovenox 40mg SC daily - GI: Protonix 40mg IV daily - Physical Therapy All plans and management discussed with Dr. Brandt Status: Acute
[2018-11-27] MEDS ORDERED: Potassium Chloride 20 mEq/15 ml LIQ UD PO ONE (13:51)
[2018-11-27] MEDS ORDERED: Sodium Chloride 0.9% 1,000 ML IV ONE (13:55)
[2018-11-27 14:18] LABS: ABG ALLEN TEST POS; ARTERIAL BLOOD GAS HCO3 29.3 mmol/L (21-28); ARTERIAL BLOOD GAS HEMOGLOBIN 13.7 g/dL (11.7-17.4); ARTERIAL BLOOD GAS O2 SAT 99.5 % (95-98); ARTERIAL BLOOD GAS PCO2 41 mm/Hg (35-45); ARTERIAL BLOOD GAS PH 7.47 (7.35-7.45); ARTERIAL BLOOD GAS PO2 120 mm/Hg (80-100); ARTERIAL BLOOD GAS TCO2 31.1 mmol/L (22-28)
--- NOTE | 2018-11-28 07:34 | CP.PCM.PN ---
Subjective - Date & Time of Evaluation Date of Evaluation: 11/28/18 Time of Evaluation: 08:00 - Subjective Subjective: Medicine Progress Note for Dr. Brandt's Service: Patient was seen and examined at bedside in AM. Patient was on BiPAP when examined. Patient responded to name and painful stimuli. Patient was non- verbal and would not answer questions. Objective - Vital Signs/Intake and Output Vital Signs (last 24 hours): Temp Pulse Resp BP Pulse Ox 98.2 F 72 22 122/84 98 11/27/18 07:40 11/28/18 01:28 11/27/18 15:05 11/27/18 07:40 11/27/18 07:40 - Medications Medications: Current Medications Albuterol/Ipratropium (Duoneb 3 Mg/0.5 Mg (3 Ml) Ud) 3 ml INH RQ6 PRN PRN Reason: Shortness of Breath Amlodipine Besylate (Norvasc) 10 mg PO DAILY [facility] Last Admin: 11/27/18 10:50 Dose: Not Given Benztropine Mesylate (Cogentin) 0.5 mg PO Q6H PRN PRN Reason: Agitation Last Admin: 11/27/18 14:29 Dose: 0.5 mg Diclofenac Sodium (Voltaren) 50 mg PO TID [facility] Last Admin: 11/27/18 21:50 Dose: 50 mg Enoxaparin Sodium (Lovenox) 40 mg SC DAILY [facility] Last Admin: 11/27/18 10:50 Dose: Not Given Ergocalciferol (Drisdol 50,000 Intl Units Cap) 1 cap PO QWK [facility] Furosemide (Lasix) 20 mg IVP DAILY [facility] Last Admin: 11/27/18 10:50 Dose: Not Given Haloperidol (Haldol) 2 mg PO Q6H PRN PRN Reason: Agitation Last Admin: 11/27/18 14:29 Dose: 2 mg Methylprednisolone (Solu-Medrol) 10 mg IVP ONCE ONE Stop: 11/28/18 10:01 Pantoprazole Sodium (Protonix Inj) 40 mg IVP DAILY [facility] Last Admin: 11/27/18 14:29 Dose: 40 mg - Labs Labs: 11/27/18 11:01 11/27/18 11:01 - Constitutional Appears: No Acute Distress, Confused - Head Exam Head Exam: ATRAUMATIC, NORMAL INSPECTION - Eye Exam Eye Exam: EOMI, Normal appearance - ENT Exam ENT Exam: Mucous Membranes Moist - Respiratory Exam Respiratory Exam: NORMAL BREATHING PATTERN - Cardiovascular Exam Cardiovascular Exam: REGULAR RHYTHM, +S1, +S2 - GI/Abdominal Exam GI & Abdominal Exam: Soft, Normal Bowel Sounds. absent: Tenderness - Neurological Exam Neurological Exam: Awake - Psychiatric Exam Psychiatric exam: Flat Affect Assessment and Plan - Assessment and Plan (Free Text) Assessment: Altered mental status Consultation: Neurology, Dr. Levy---> Help appreciated * F/u recommendation * MRI without contrast --> was not able to be completed due to patient's size Psychiatry, Dr. Boyd-----> help appreciated * F/U recommendation Imaging: - Head CT: No acute intracranial abnormality. Mild chornic microangiopathic changes and mild age-related global parenchymal volume loss. - Chest Xray: Moderate pulmonary venous congestion and small left pleural effusion. Persistent moderate cardiomegaly with unfolding of the aorta. Labs: - ABG: CO2 38; O2 79; HCO3 29.1; pH 7.49 - Urine and blood culture negative - Ammonia < 9 Possibly 2/2 dehydration * PO challenge Heart failure with preserved ejection fraction Chest x-ray: Moderate pulmonary venous congestion and small left pleural effusion. Persistent moderate cardiomegaly with unfolding of the aorta ECHO (07/07): LV systolic function is normal. EJ (55-60%). Diastolic dysfunction. No AR. There is no mitral valve regurgitation noted. There is mild TR. There is no pulmonary hypertension and no pulmonic valvular regurgitation Medication: * Lasix 40 PO daily switched 20mg IV daily Hypokalemia Repleted appropriately Continue to monitor with am labs Obesity hypoventilation syndrome BiPAP at night or continuously Hypertension Amlodipine 10mg PO daily Prophylactic measure - DVT: Lovenox 40mg SC daily - GI: Protonix 40mg IV daily - Physical Therapy [facility]. All plans and management discussed with Dr. Brandt
[2018-11-28] MEDS ORDERED: MethylPREDNISolone 40 mg Vial IVP ONE (10:00)
[2018-11-28] MEDS: Enoxaparin 40 mg Syringe SC SCH (10:55)
[2018-11-28] MEDS: Diclofenac Sodium Delayed Release 50 mg EC Tab PO SCH ×3 (10:55→18:20)
--- NOTE | 2018-11-28 11:04 | PCM.PSYCH ---
Initial Psychiatric Evaluation - Initial Psychiatric Evaluation Type of Admission: Voluntary Legal Status: Capacity Chief Complaint (in patient's own words): jareth.' History of Present Illness and Precipitating Events: 83 y/o AA female. Pt has 4 adult children and lives at home with . Psych is being consulted for altered mental status. Pt has been confused for the past 5 days per son at bedside. He states that this has never happened before. Pt has been talking to herself and rambling on, her per son. Pt was also agitated Sunday after her family told her they were leaving. She proceeded to throw a tantrum on the ground and urinate on herself, per the nurse. Pt is alert, but oriented to time, place, and day. Pt as not been eating, per the nurse. Pt unable to answer questions due to her mental state. Patient remained disorganized and internally preoccupied throughout the interview. She was found responding to internal stimuli and remained psychotic, and bizarre. However, she denies any suicidal ideation or any homicidal ideation. Current Medications: Active Medications Generic Name Dose Route Start Last Admin Trade Name Freq PRN Reason Stop Dose Admin Albuterol/Ipratropium 3 ml 11/22/18 22:45 Duoneb 3 Mg/0.5 Mg (3 Ml) Ud INH RQ6 PRN Shortness of Breath Amlodipine Besylate 10 mg 11/23/18 10:00 11/28/18 10:55 Norvasc PO 10 mg DAILY [facility] Administration Benztropine Mesylate 0.5 mg 11/27/18 13:45 11/27/18 14:29 Cogentin PO 0.5 mg Q6H PRN Administration Agitation Diclofenac Sodium 50 mg 11/23/18 10:00 11/28/18 10:55 Voltaren PO 50 mg TID [facility] Administration Enoxaparin Sodium 40 mg 11/23/18 10:00 11/28/18 10:55 Lovenox SC 40 mg DAILY [facility] Administration Ergocalciferol 1 cap 11/29/18 10:00 Drisdol 50,000 Intl Units Cap PO QWK [facility] Furosemide 20 mg 11/27/18 10:00 11/27/18 10:50 Lasix IVP Not Given DAILY [facility] Haloperidol 2 mg 11/27/18 14:30 11/27/18 14:29 Haldol PO 2 mg Q6H PRN Administration Agitation Pantoprazole Sodium 40 mg 11/27/18 14:15 11/28/18 10:55 Protonix Inj IVP 40 mg DAILY [facility] Administration Past Psychiatric History - Past Psychiatric History Previous Treatment History: None Pertinent Medical Hx (Current Medical&Sleep Prob, Allergies): Allergies Allergy/AdvReac Type Severity Reaction Status Date / Time No Known Allergies Allergy Verified 07/31/15 18:49 Diclofenac Sodium [Voltaren] 75 mg PO BID 06/26/18 Furosemide 40 mg PO DAILY 06/26/18 Ketotifen Fumarate [Zaditor] 1 drop OP BID 06/26/18 Lubiprostone [Amitiza] 24 mcg PO DAILY 06/26/18 Oxycodone HCl/Acetaminophen [Percocet 10-325 mg Tablet] 1 each PO Q6H PRN 06/26/18 Ergocalciferol (Vitamin D2) [Vitamin D2] 50,000 unit PO QWK 09/15/18 Omeprazole 20 mg PO DAILY 09/15/18 amLODIPine [Norvasc] 10 mg PO DAILY 09/15/18 Albuterol/Ipratropium [Duoneb 3 mg/0.5 mg (3 ml) UD] 3 ml INH RQ6 PRN neb 09/23/18 predniSONE [predniSONE Tab] See Taper PO DAILY #17 tab 09/23/18 Review of Systems - Review of Systems All systems: reviewed and no additional remarkable complaints except - Psychiatric Psychiatric: Anxiety, Auditory Hallucinations, Irritability, Paranoia Mental Status Examination - Personal Presentation Personal Presentation: Looks stated age - Affect Affect: Broad - Motor Activity Motor Activity: Psychomotor Agitation - Reliability in Providing Information Reliability in Providing Information: Poor, due to alteration in thoughts, Poor, due to altered mood - Speech Speech: Disorganized - Mood Mood: Anxious - Formal Thought Process Formal Thought Process: Hallucinations, Delusions, Paranoia, Loosening of associations - Hallucinations/Delusions Hallucinations: Visual, Auditory Delusions: Persecution - Obsessions/Compulsions Obsessions: No Compulsions: No - Cognitive Functions Orientation: Person, Place, Situation, Time Sensorium: Alert Attention/Concentration: Attentive Abstract Thinking: [place] Estimate of Intelligence: Below average Judgement: Imparied, as evidence by: Poor judgement, Imparied, as evidence by: Lack of insight into illness - Risk Risk: Diminished functioning - Limitations Limitations: Living alone DSM 5 DX - DSM 5 DSM 5 Diagnosis: Delirium - Recommended/Plan of Treatment Treatment Recommendations and Plan of Treatment: Delirium Supportive therapy Haldol 2 mg PRN Cogentin 0.5 mg PO PRN Haldol 1 mg PO BID
[2018-11-28 11:52] LABS: BASO # 0.1 K/uL (0.0-0.2); BASO % 0.9 % (0.0-2.0); EOS # 0.1 K/uL (0.0-0.7); EOS % 0.7 % (0.0-4.0); HEMOGLOBIN 13.3 g/dL (11.0-16.0); LYMPH # 1.8 K/uL (1.0-4.3); LYMPH % 19.6 % (20.0-40.0); MEAN CELL VOLUME 101.4 fL (81.0-99.0); MEAN CORPUSCULAR HEMOGLOBIN 33.8 pg (27.0-31.0); MEAN CORPUSCULAR HGB CONC 33.3 g/dL (33.0-37.0); MEAN PLATELET VOLUME 9.3 fL (7.2-11.7); MONO # 0.6 K/uL (0.0-0.8); MONO % 6.1 % (0.0-10.0); NEUT # 6.7 K/uL (1.8-7.0); NEUT % 72.7 % (50.0-75.0); NRBC % 0.1 % (0.0-2.0); RBC 3.94 Mil/uL (3.80-5.20); RED CELL DISTRIBUTION WIDTH 12.6 % (11.5-14.5); WHITE BLOOD COUNT 9.2 K/uL (4.8-10.8)
[2018-11-28 12:08] LABS: ALB/GLOB RATIO 1.3 (1.0-2.1); ALT/SGPT 91 U/L (9-52); AST/SGOT 63 U/L (14-36); BLOOD UREA NITROGEN 29 mg/dL (7-17); CALCIUM 9.7 mg/dl (8.6-10.4); GFR NON-AFRICAN AMERICAN > 60
--- NOTE | 2018-11-28 17:17 | CP.PCM.CON ---
History of Present Illness - History of Present Illness History of Present Illness: Neurology consult dictated. Patient with ams that started several days ago, that is suspicious for herpes encephalitis, and will require portable video eeg, and possibly LP . MRI brain needed as well. Plan : 1. Start acyclovir gavino 2. VEEG 3. LP Dr. kelly Neurology Past Patient History - Infectious Disease Hx of Infectious Diseases: None - Past Medical History & Family History Past Medical History?: Yes - Past Social History Smoking Status: Never Smoked - CARDIAC Hx Congestive Heart Failure: Yes Hx Hypertension: Yes - PULMONARY Hx Chronic Obstructive Pulmonary Disease (COPD): Yes - NEUROLOGICAL Hx Neurological Disorder: No - HEENT Hx HEENT Problems: No - RENAL Hx Chronic Kidney Disease: No - ENDOCRINE/METABOLIC Hx Endocrine Disorders: No - HEMATOLOGICAL/ONCOLOGICAL Hx Blood Disorders: No - INTEGUMENTARY Hx Dermatological Problems: No - MUSCULOSKELETAL/RHEUMATOLOGICAL Hx Falls: No - GASTROINTESTINAL Hx Gastrointestinal Disorders: No Hx Constipation: Yes - GENITOURINARY/GYNECOLOGICAL Hx Genitourinary Disorders: No - PSYCHIATRIC Hx Substance Use: No - SURGICAL HISTORY Hx Cholecystectomy: Yes - ANESTHESIA Hx Anesthesia: Yes Hx Anesthesia Reactions: No Hx Malignant Hyperthermia: No Meds Allergies/Adverse Reactions: Allergies Allergy/AdvReac Type Severity Reaction Status Date / Time No Known Allergies Allergy Verified 07/31/15 18:49 - Medications Medications: Current Medications Albuterol/Ipratropium (Duoneb 3 Mg/0.5 Mg (3 Ml) Ud) 3 ml INH RQ6 PRN PRN Reason: Shortness of Breath Amlodipine Besylate (Norvasc) 10 mg PO DAILY [facility] Last Admin: 11/28/18 10:55 Dose: 10 mg Benztropine Mesylate (Cogentin) 0.5 mg PO Q6H PRN PRN Reason: Agitation Last Admin: 11/27/18 14:29 Dose: 0.5 mg Benztropine Mesylate (Cogentin) 0.5 mg PO BID [facility] Last Admin: 11/28/18 12:03 Dose: 0.5 mg Diclofenac Sodium (Voltaren) 50 mg PO TID [facility] Last Admin: 11/28/18 13:27 Dose: 50 mg Enoxaparin Sodium (Lovenox) 40 mg SC DAILY [facility] Last Admin: 11/28/18 10:55 Dose: 40 mg Ergocalciferol (Drisdol 50,000 Intl Units Cap) 1 cap PO QWK [facility] Furosemide (Lasix) 20 mg IVP DAILY [facility] Last Admin: 11/28/18 10:56 Dose: 20 mg Haloperidol (Haldol) 2 mg PO Q6H PRN PRN Reason: Agitation Last Admin: 11/27/18 14:29 Dose: 2 mg Haloperidol (Haldol) 1 mg PO BID [facility] Last Admin: 11/28/18 12:03 Dose: 1 mg Pantoprazole Sodium (Protonix Inj) 40 mg IVP DAILY [facility] Last Admin: 11/28/18 10:55 Dose: 40 mg Results - Vital Signs Recent Vital Signs: Last Vital Signs Temp 98.9 F 11/28/18 16:08 Pulse 92 H 11/28/18 16:08 Resp 20 11/28/18 16:08 BP 143/71 11/28/18 16:08 Pulse Ox 98 11/28/18 16:08 - Labs Result Diagrams: 11/28/18 11:44 11/28/18 11:44 Labs: Laboratory Results - last 24 hr 11/28/18 11/28/18 11/28/18 11:44 11:44 11:44 WBC 9.2 RBC 3.94 Hgb 13.3 Hct 40.0 MCV 101.4 H MCH 33.8 H MCHC 33.3 RDW 12.6 Plt Count 204 D MPV 9.3 Neut % (Auto) 72.7 Lymph % (Auto) 19.6 L King % (Auto) 6.1 Eos % (Auto) 0.7 Baso % (Auto) 0.9 Neut # (Auto) 6.7 Lymph # (Auto) 1.8 King # (Auto) 0.6 Eos # (Auto) 0.1 Baso # (Auto) 0.1 Sodium 140 Potassium 3.9 Chloride 102 Carbon Dioxide 28 Anion Gap 14 BUN 29 H Creatinine 0.9 Est GFR ( Amer) > 60 Est GFR (Non-Af Amer) > 60 Random Glucose 123 H D Calcium 9.7 Phosphorus 3.5 Magnesium 2.0 Total Bilirubin 2.0 H AST 63 H ALT 91 H D Alkaline Phosphatase 70 Total Protein 7.1 Albumin 4.0 Globulin 3.1 Albumin/Globulin Ratio 1.3 Procalcitonin < 0.05 L
--- NOTE | 2018-11-29 06:07 | CON ---
DATE: 11/28/2018 NEUROLOGY CONSULT HISTORY OF PRESENT ILLNESS: Ms. Alonso is an 83-year-old who was brought to the emergency room on 11/22/2018, at 14:13 by family for evaluation of confusion and altered mental status. The patient reported urinary incontinence and dysuria over the last couple of days. As per son, the patient was brought in essentially at baseline, ambulatory with walker. At the point of admission, she denied fevers, chills, cough, chest pain, shortness of breath, vomiting and diarrhea. She COPD, on home O2. Yesterday when the patient was seen, the patient was extremely lethargic, was encephalopathic, not answering questions appropriately. We ordered an MRI of the brain. MRI of the brain was attempted to be done but it was not possible because of the patient's mental status. Head CT was done and showed the following. Head CT was within normal limits. The patient progressively became worse. A neurology consult was called yesterday morning, and on today's exam, the patient is not able to give me review of systems because of her mental status. PAST MEDICAL HISTORY: As above. PAST SURGICAL HISTORY: As above. FAMILY AND SOCIAL HISTORY: Not known. Lives with son. ALLERGIES: NO KNOWN DRUG ALLERGIES. this patient's baseline was quite normal before this presentation. LABORATORY DATA: White count 9.2, hemoglobin 13.3, hematocrit 40. Chemistry 140, potassium 3.9. BUN 29, creatinine 0.9. Random glucose 123. AST and ALT 63 and 91, trending upwards from 50 and 63 respectively. Urine is normal. MEDICATIONS: Haldol, diclofenac, benzatropine, amlodipine. PHYSICAL EXAMINATION: GENERAL: She is not alert, not aware, not oriented x1. She is phrases which are understandable. She follows rare commands looking up at me. However, she cannot follow commands, not moving her arms or legs. She cannot follow commands of sticking out her tongue. She has nuchal rigidity. Reflexes are +2 in upper and lower limbs bilaterally. HEENT: Pupils are equal, round, and reactive to light. NEUROLOGIC: Cranial nerves . ASSESSMENT: This is a extremely encephalopathic 83-year-old woman whom I am quite worried about is having seizures and may have herpes encephalitis. PLAN: 1. LP. 2. EEG for 24 hours. 3. Start acyclovir. 4. Start Depakote 1000 mg down 500 mg twice a day. Hillary Levy MD
[2018-11-29 06:40] LABS: BASO % 0.1 % (0.0-2.0); EOS % 0.5 % (0.0-4.0); HEMOGLOBIN 12.9 g/dL (11.0-16.0); LYMPH # 1.2 K/uL (1.0-4.3); LYMPH % 13.3 % (20.0-40.0); MEAN CELL VOLUME 100.5 fL (81.0-99.0); MEAN CORPUSCULAR HEMOGLOBIN 33.1 pg (27.0-31.0); MEAN CORPUSCULAR HGB CONC 32.9 g/dL (33.0-37.0); MEAN PLATELET VOLUME 8.6 fL (7.2-11.7); MONO # 0.6 K/uL (0.0-0.8); NEUT # 7.5 K/uL (1.8-7.0); NEUT % 80.1 % (50.0-75.0); RBC 3.89 Mil/uL (3.80-5.20); RED CELL DISTRIBUTION WIDTH 12.6 % (11.5-14.5); WHITE BLOOD COUNT 9.3 K/uL (4.8-10.8)
[2018-11-29 07:41] LABS: ALB/GLOB RATIO 1.2 (1.0-2.1); ALBUMIN 3.7 g/dL (3.5-5.0); ALT/SGPT 80 U/L (9-52); AST/SGOT 64 U/L (14-36); BLOOD UREA NITROGEN 22 mg/dL (7-17); CALCIUM 9.4 mg/dl (8.6-10.4); GFR NON-AFRICAN AMERICAN > 60
[2018-11-29] MEDS: Enoxaparin 40 mg Syringe SC SCH (09:21)
[2018-11-29] MEDS: Diclofenac Sodium Delayed Release 50 mg EC Tab PO SCH ×3 (09:22→17:34)
--- NOTE | 2018-11-29 09:51 | PCM.VEEG ---
Video EEG - Procedure Start Date: 11/28/18 Start Time: 19:30 Technical Summary: This is a multichannel inpatient Video-EEG monitoring performed in accordance with recommendations specified by the [place] [employer] (ACNS: Guidelines 1; Section 2, 2006). The 10-20 electrode placement system was utilized in adherence with guidelines detailed by the International Federation of Clinical Neurophysiology (IFCN; Krish URIAS, 1983). Physiologic EEG data and video was acquired digitally. A minimum of at least 22 channels was used for digital data acquisition. Electrophysiologic data was sampled at a rate of 512 Hz. Digital high and low pass filtering was used where appropriate. Data was formatted to various electrode montages as deemed pertinent. All EEG information was analyzed by spike and seizure detection software. In addition, all EEG information was reviewed by a physician. A bedside event button was used to provide a time stamp for clinical events. - Interpretation Description of the study: The recording is well organized and it is within the normal range of amplitude and symmetry. In the best awake state, there is a posterior dominant rhythm of 9 cycles per second that responds to eye opening and closing. There is normal low voltage fast activity over the anterior and central head regions. During drowsiness there is attenuation of all frequencies, fragmentation of the posterior dominant rhythm, and diffuse theta activity. Sleep is characterized by vertex waves, K complexes, and symmetric sleep spindles. EEG Finding during wakefulness: The recording is well organized and it is within the normal range of amplitude and symmetry. In the best awake state, there is a posterior dominant rhythm of 9 cycles per second that responds to eye opening and closing. There is normal low voltage fast activity over the anterior and central head regions. EEG Finding during sleep: During drowsiness there is attenuation of all frequencies, fragmentation of the posterior dominant rhythm, and diffuse theta activity. Sleep is characterized by vertex waves, K complexes, and symmetric sleep spindles. Interictal non-epileptiform abnormalities: none Interictal epileptiform abnormalities: none Ictal epileptiform abnormalities: Patient had episodes of head and body jerking lasting for a few seconds, not associated with ictal EEG changes - Impression Impression: Normal video-EEG The episodes of jerking were not epileptic in nature
[2018-11-29] MEDS ORDERED: Ergocalciferol 50,000 Intl Units Cap PO SCH (10:00)
--- NOTE | 2018-11-29 14:20 | CP.PCM.PN ---
Subjective - Date & Time of Evaluation Date of Evaluation: 11/29/18 Time of Evaluation: 10:30 - Subjective Subjective: Medicine note ( Dr. Brandt's service) Patient was seen and examined at bedside, while on continuous video EEG. Patient was not agitated and denies any discomfort. As per CPT staff, patient had her breakfast this am. Objective - Vital Signs/Intake and Output Vital Signs (last 24 hours): Temp Pulse Resp BP Pulse Ox 98.1 F 91 H 20 131/87 99 11/29/18 08:25 11/29/18 08:25 11/29/18 08:25 11/29/18 09:20 11/29/18 08:25 - Medications Medications: Current Medications Albuterol/Ipratropium (Duoneb 3 Mg/0.5 Mg (3 Ml) Ud) 3 ml INH RQ6 PRN PRN Reason: Shortness of Breath Amlodipine Besylate (Norvasc) 10 mg PO DAILY [facility] Last Admin: 11/29/18 09:21 Dose: 10 mg Benztropine Mesylate (Cogentin) 0.5 mg PO Q6H PRN PRN Reason: Agitation Last Admin: 11/27/18 14:29 Dose: 0.5 mg Benztropine Mesylate (Cogentin) 0.5 mg PO BID [facility] Last Admin: 11/29/18 09:22 Dose: 0.5 mg Diclofenac Sodium (Voltaren) 50 mg PO TID [facility] Last Admin: 11/29/18 13:57 Dose: 50 mg Enoxaparin Sodium (Lovenox) 40 mg SC DAILY [facility] Last Admin: 11/29/18 09:21 Dose: 40 mg Ergocalciferol (Drisdol 50,000 Intl Units Cap) 1 cap PO QWK [facility] Last Admin: 11/29/18 09:21 Dose: 1 cap Furosemide (Lasix) 20 mg IVP DAILY [facility] Last Admin: 11/29/18 09:20 Dose: 20 mg Haloperidol (Haldol) 2 mg PO Q6H PRN PRN Reason: Agitation Last Admin: 11/27/18 14:29 Dose: 2 mg Haloperidol (Haldol) 1 mg PO BID [facility] Last Admin: 11/29/18 09:22 Dose: 1 mg Pantoprazole Sodium (Protonix Inj) 40 mg IVP DAILY [facility] Last Admin: 11/29/18 09:21 Dose: 40 mg - Labs Labs: 11/29/18 06:30 11/29/18 06:30 - Constitutional Appears: Well, No Acute Distress - Head Exam Head Exam: ATRAUMATIC, NORMAL INSPECTION - Eye Exam Eye Exam: EOMI, Normal appearance - ENT Exam ENT Exam: Mucous Membranes Moist - Respiratory Exam Respiratory Exam: Clear to Ausculation Bilateral, NORMAL BREATHING PATTERN - Cardiovascular Exam Cardiovascular Exam: REGULAR RHYTHM, +S1, +S2 - GI/Abdominal Exam GI & Abdominal Exam: Soft, Normal Bowel Sounds. absent: Distended, Firm, Guarding, Rigid, Tenderness - Extremities Exam Extremities Exam: Normal Inspection - Neurological Exam Neurological Exam: Alert, Awake - Psychiatric Exam Psychiatric exam: Flat Affect Assessment and Plan (1) Altered mental status Assessment & Plan: Altered mental status Consultation: Neurology, Dr. Levy---> Help appreciated * MRI without contrast --> was not able to be completed due to patient's size * Continuous video EEG: Normal video-EEG. The episodes of jerking were not epileptic in nature Psychiatry, Dr. Boyd-----> help appreciated * Supportive therapy * Haloperidol 2mg PO Q6H PRN * Haloperidol 1mg PO BID * Congentin 0.5mg PO Q6H PRN * Congentin 0.5mg PO BID Imaging: - Head CT: No acute intracranial abnormality. Mild chornic microangiopathic changes and mild age-related global parenchymal volume loss. - Chest Xray: Moderate pulmonary venous congestion and small left pleural effusion. Persistent moderate cardiomegaly with unfolding of the aorta. Labs: - ABG: CO2 38; O2 79; HCO3 29.1; pH 7.49 - Urine and blood culture negative - Ammonia < 9 Possibly 2/2 dehydration * Continue with PO challenge Status: Acute (2) Heart failure with preserved ejection fraction Assessment & Plan: Chest x-ray: Moderate pulmonary venous congestion and small left pleural effusion. Persistent moderate cardiomegaly with unfolding of the aorta ECHO (07/07): LV systolic function is normal. EJ (55-60%). Diastolic dysfunction. No AR. There is no mitral valve regurgitation noted. There is mild TR. There is no pulmonary hypertension and no pulmonic valvular regurgitation Medication: * Lasix 40 PO daily switched 20mg IV daily Status: Acute (3) Hypokalemia Assessment & Plan: Resolved Repleted appropriately Continue to monitor with am labs Status: Acute (4) Obesity hypoventilation syndrome Assessment & Plan: BiPAP at night or continuously Status: Acute (5) Hypertension Assessment & Plan: Amlodipine 10mg PO daily Status: Acute (6) Prophylactic measure Assessment & Plan: - DVT: Lovenox 40mg SC daily - GI: Protonix 40mg IV daily - Physical Therapy Disposition: Discharge to [facility], pending authorization. All plans and management discussed with Dr. Brandt Status: Acute
--- NOTE | 2018-11-29 14:40 | CP.PCM.PN ---
Subjective - Date & Time of Evaluation Date of Evaluation: 11/29/18 Time of Evaluation: 14:39 - Subjective Subjective: Neuro Follow-Up: Mrs. Alonso was evaluated this afternoon at bedside. Son at bedside. Pt still connected to the VEEG; waiting for company to come and disconnect her. Son translating; pt speaks Creole. Pt states that she is feeling better today. She offers no new complaints. When discussing with pt's son her symptom onset, he admits to me that there was a recent in the family (pt's brother). The family has been keeping this information from the pt but she recently found out. Son admits to this just prior to pt's confusion. Otherwise, ROS unremarkable. Objective - Vital Signs/Intake and Output Vital Signs (last 24 hours): Temp Pulse Resp BP Pulse Ox 98.1 F 91 H 20 131/87 99 11/29/18 08:25 11/29/18 08:25 11/29/18 08:25 11/29/18 09:20 11/29/18 08:25 - Medications Medications: Current Medications Albuterol/Ipratropium (Duoneb 3 Mg/0.5 Mg (3 Ml) Ud) 3 ml INH RQ6 PRN PRN Reason: Shortness of Breath Amlodipine Besylate (Norvasc) 10 mg PO DAILY [facility] Last Admin: 11/29/18 09:21 Dose: 10 mg Benztropine Mesylate (Cogentin) 0.5 mg PO Q6H PRN PRN Reason: Agitation Last Admin: 11/27/18 14:29 Dose: 0.5 mg Benztropine Mesylate (Cogentin) 0.5 mg PO BID [facility] Last Admin: 11/29/18 09:22 Dose: 0.5 mg Diclofenac Sodium (Voltaren) 50 mg PO TID [facility] Last Admin: 11/29/18 13:57 Dose: 50 mg Enoxaparin Sodium (Lovenox) 40 mg SC DAILY [facility] Last Admin: 11/29/18 09:21 Dose: 40 mg Ergocalciferol (Drisdol 50,000 Intl Units Cap) 1 cap PO QWK [facility] Last Admin: 11/29/18 09:21 Dose: 1 cap Furosemide (Lasix) 20 mg IVP DAILY [facility] Last Admin: 11/29/18 09:20 Dose: 20 mg Haloperidol (Haldol) 2 mg PO Q6H PRN PRN Reason: Agitation Last Admin: 11/27/18 14:29 Dose: 2 mg Haloperidol (Haldol) 1 mg PO BID [facility] Last Admin: 11/29/18 09:22 Dose: 1 mg Pantoprazole Sodium (Protonix Inj) 40 mg IVP DAILY [facility] Last Admin: 11/29/18 09:21 Dose: 40 mg - Labs Labs: 11/29/18 06:30 11/29/18 06:30 - Constitutional Appears: Non-toxic, No Acute Distress - Head Exam Head Exam: NORMOCEPHALIC - Eye Exam Eye Exam: EOMI, Normal appearance, PERRL Pupil Exam: NORMAL ACCOMODATION, PERRL - ENT Exam ENT Exam: Mucous Membranes Moist - Neck Exam Neck Exam: Full ROM, Normal Inspection - Respiratory Exam Respiratory Exam: NORMAL BREATHING PATTERN - GI/Abdominal Exam Additional comments: obese - Extremities Exam Extremities Exam: absent: Calf Tenderness, Pedal Edema Additional comments: Able to move all extremities; has some generalized weakness overall - Neurological Exam Neurological Exam: Alert, Awake, CN II-XII Intact, Oriented x3 Neuro motor strength exam: Left Upper Extremity: 4, Right Upper Extremity: 4, Left Lower Extremity: 4, Right Lower Extremity: 4 Additional comments: AAOx3; able to name. Appears comfortable but withdrawn (? grieving, depressed) Speech clear Able to move all extremities; has some generalized weakness overall No focal sensory deficits. No tremors or myoclonic movements noted. Gait not assessed. - Psychiatric Exam Additional comments: Appears withdrawn, no eye contact; ? depressed 2/2 grieving, ? stress reaction - Skin Skin Exam: Normal Color Assessment and Plan (1) Encephalopathy acute Assessment & Plan: Imaging reviewed: -EEG (11/28/18): Impression: Normal video-EEG. The episodes of jerking were not epileptic in nature. -CT head (11/22/18): No acute intracranial abnormality. Mild chronic microangiopathic changes and mild age-related global parenchymal volume loss. -Delirium vs grieving/stress reaction vs dementia ? -D/C VEEG. -Herpes encephalitis has been ruled out based on the normal EEG. LP not indicated at this time, nor is Acyclovir. -MRI Brain with and without contrast may be done when pt is stable. Pt exceeds the weight limit to have it done here. Open MRI can be done as outpatient as soon as pt is d/c. -Psych on case; continue medications per Dr. Boyd's recommendations. -Continue supportive treatment. -Continue PT; recommend rehab. -Notify neuro of any acute changes in pt's condition. Gricelda Lemons DNP, CONTAINER PACKER OPERATOR d/w Dr. Levy Status: Acute
[2018-11-30 08:17] LABS: BASO # 0.1 K/uL (0.0-0.2); BASO % 0.8 % (0.0-2.0); EOS # 0.2 K/uL (0.0-0.7); HEMOGLOBIN 12.8 g/dL (11.0-16.0); LYMPH # 1.5 K/uL (1.0-4.3); MEAN CELL VOLUME 100.8 fL (81.0-99.0); MEAN CORPUSCULAR HEMOGLOBIN 33.4 pg (27.0-31.0); MEAN CORPUSCULAR HGB CONC 33.2 g/dL (33.0-37.0); MEAN PLATELET VOLUME 8.8 fL (7.2-11.7); MONO # 0.7 K/uL (0.0-0.8); MONO % 8.1 % (0.0-10.0); NEUT # 5.6 K/uL (1.8-7.0); NEUT % 69.1 % (50.0-75.0); NRBC % 0.1 % (0.0-2.0); RBC 3.81 Mil/uL (3.80-5.20); RED CELL DISTRIBUTION WIDTH 12.8 % (11.5-14.5)
[2018-11-30 08:36] LABS: ALB/GLOB RATIO 1.3 (1.0-2.1); ALBUMIN 3.8 g/dL (3.5-5.0); ALT/SGPT 77 U/L (9-52); AST/SGOT 82 U/L (14-36); BLOOD UREA NITROGEN 20 mg/dL (7-17); GFR NON-AFRICAN AMERICAN > 60
--- NOTE | 2018-11-30 09:25 | PCM.RRT ---
<Jennifer Shaw P - Last Filed: 12/02/18 07:47> ATTRACTION WORKER Nurses Assessment - Situation Date: 11/30/18 Time ATTRACTION WORKER was called: 09:12 ATTRACTION WORKER Responder Arrival Time:: 09:14 ATTRACTION WORKER Location:: Med/Surg New IV Insertion Tolerance: Good - Ventilator Settings FIO2 (% Oxygen): 30 - Constitutional Appears: Non-toxic, No Acute Distress - Head Head Exam: ATRAUMATIC, NORMOCEPHALIC - Eyes Eye Exam: EOMI, Normal appearance - Respiratory Exam Respiratory Exam: Clear to Ausculation Bilateral. absent: Rales, Rhonchi, Wheezes - Cardiovascular Exam Cardiovascular Exam: REGULAR RHYTHM, +S1, +S2 - GI/Abdominal Exam GI & Abdominal Exam: Soft. absent: Tenderness - Neurological Exam Additional exam: lethargic, opens eyes, localizes pain - Extremities Exam Extremities Exam: Pedal Edema (trace). absent: Tenderness Plan - Assessment of Findings&Treatment Plan House doctor note. Rapid response called for decreased responsiveness. Vitals on arrival: BP 129/79, 98% on bipap, HR 87. Las medicated with Haldol 1mg last given 5:30pm yesterday. As per covering resident, patient mental status is similar to baseline. In general, patient only becomes more alert when her son comes to visit, otherwise she is usually somnolent. smelling salt placed under nose, patient grimacing to smell. Morning dose Haldol and congentin held. Will continue to monitor. End vitals: 96% on room air, bp 130/83, HR 85 <Hussein Pham - Last Filed: 12/09/18 17:53> ATTRACTION WORKER Nurses Assessment - Vital Signs Vital Signs: Rapid Response Vital Sign Blood Pressure 124/79 Pulse Rate 78 Respiratory Rate 20 Oxygen Saturation 96 - Vital Signs at end of ATTRACTION WORKER Vital Signs at end of ATTRACTION WORKER: Rapid Response End Vital Sign Blood Pressure 130/82 Pulse Rate 89 Respiratory Rate 20 O2 Sat by Pulse Oximetry 97
[2018-11-30] MEDS ORDERED: Ammonia 2% Inhalant INH ONE (09:30)
[2018-11-30] MEDS: Enoxaparin 40 mg Syringe SC SCH (10:34)
[2018-11-30] MEDS: Diclofenac Sodium Delayed Release 50 mg EC Tab PO SCH ×3 (10:35→17:08)
[2018-11-30 16:55] LABS: ABG ALLEN TEST POS; ARTERIAL BLOOD GAS HEMOGLOBIN 12.6 g/dL (11.7-17.4); ARTERIAL BLOOD GAS O2 SAT 99.3 % (95-98); ARTERIAL BLOOD GAS PCO2 44 mm/Hg (35-45); ARTERIAL BLOOD GAS PH 7.46 (7.35-7.45); ARTERIAL BLOOD GAS PO2 91 mm/Hg (80-100); ARTERIAL BLOOD GAS TCO2 32.7 mmol/L (22-28)
[2018-11-30] MEDS: Dextrose 5%/0.45% NS 1,000 ML IV SCH (17:30)
[2018-12-01 09:10] LABS: BASO % 0.5 % (0.0-2.0); EOS # 0.2 K/uL (0.0-0.7); EOS % 1.9 % (0.0-4.0); HEMOGLOBIN 12.9 g/dL (11.0-16.0); LYMPH # 1.1 K/uL (1.0-4.3); LYMPH % 13.8 % (20.0-40.0); MEAN CELL VOLUME 100.5 fL (81.0-99.0); MEAN CORPUSCULAR HEMOGLOBIN 33.7 pg (27.0-31.0); MEAN CORPUSCULAR HGB CONC 33.5 g/dL (33.0-37.0); MEAN PLATELET VOLUME 8.9 fL (7.2-11.7); MONO # 0.6 K/uL (0.0-0.8); NEUT # 6.1 K/uL (1.8-7.0); NEUT % 75.8 % (50.0-75.0); RBC 3.82 Mil/uL (3.80-5.20); RED CELL DISTRIBUTION WIDTH 12.5 % (11.5-14.5)
[2018-12-01 09:29] LABS: ALB/GLOB RATIO 1.4 (1.0-2.1); ALBUMIN 3.8 g/dL (3.5-5.0); ALT/SGPT 88 U/L (9-52); AST/SGOT 75 U/L (14-36); BLOOD UREA NITROGEN 18 mg/dL (7-17); CALCIUM 9.5 mg/dl (8.6-10.4); GFR NON-AFRICAN AMERICAN > 60
[2018-12-01] MEDS: Diclofenac Sodium Delayed Release 50 mg EC Tab PO SCH ×3 (10:42→18:30)
[2018-12-01] MEDS: Enoxaparin 40 mg Syringe SC SCH (10:43)
[2018-12-01] MEDS: Dextrose 5%/0.45% NS 1,000 ML IV SCH (12:30)
[2018-12-01] MEDS: Pantoprazole 40 mg EC Tab PO SCH (13:57)
[2018-12-02 06:42] LABS: BASO % 0.5 % (0.0-2.0); EOS # 0.3 K/uL (0.0-0.7); EOS % 3.1 % (0.0-4.0); HEMOGLOBIN 13.1 g/dL (11.0-16.0); LYMPH # 1.3 K/uL (1.0-4.3); LYMPH % 13.8 % (20.0-40.0); MEAN CELL VOLUME 100.8 fL (81.0-99.0); MEAN CORPUSCULAR HEMOGLOBIN 33.4 pg (27.0-31.0); MEAN CORPUSCULAR HGB CONC 33.1 g/dL (33.0-37.0); MEAN PLATELET VOLUME 8.7 fL (7.2-11.7); MONO # 0.8 K/uL (0.0-0.8); MONO % 8.2 % (0.0-10.0); NEUT % 74.4 % (50.0-75.0); NRBC % 0.1 % (0.0-2.0); RBC 3.94 Mil/uL (3.80-5.20); RED CELL DISTRIBUTION WIDTH 12.5 % (11.5-14.5); WHITE BLOOD COUNT 9.5 K/uL (4.8-10.8)
--- NOTE | 2018-12-02 07:45 | CP.PCM.PN ---
Subjective - Date & Time of Evaluation Date of Evaluation: 12/02/18 Time of Evaluation: 08:00 - Subjective Subjective: Medicine Progress Note for Dr. Brandt's Service: Patient was seen and examined at bedside in AM. Patient is sitting comfortably in the chair. Patient responded to name and painful stimuli. Patient was non- verbal and would not answer questions. Objective - Vital Signs/Intake and Output Vital Signs (last 24 hours): Temp Pulse Resp BP Pulse Ox 997.8 F H 101 H 20 121/81 98 12/01/18 15:00 12/01/18 15:00 12/01/18 15:00 12/01/18 15:00 12/01/18 15:00 - Medications Medications: Current Medications Albuterol/Ipratropium (Duoneb 3 Mg/0.5 Mg (3 Ml) Ud) 3 ml INH RQ6 PRN PRN Reason: Shortness of Breath Amlodipine Besylate (Norvasc) 10 mg PO DAILY [facility] Last Admin: 12/01/18 10:43 Dose: 10 mg Benztropine Mesylate (Cogentin) 0.5 mg PO Q6H PRN PRN Reason: Agitation Last Admin: 11/27/18 14:29 Dose: 0.5 mg Benztropine Mesylate (Cogentin) 0.5 mg PO BID [facility] Last Admin: 11/29/18 17:34 Dose: 0.5 mg Diclofenac Sodium (Voltaren) 50 mg PO TID [facility] Last Admin: 12/01/18 18:30 Dose: 50 mg Enoxaparin Sodium (Lovenox) 40 mg SC DAILY [facility] Last Admin: 12/01/18 10:43 Dose: 40 mg Ergocalciferol (Drisdol 50,000 Intl Units Cap) 1 cap PO QWK [facility] Last Admin: 11/29/18 09:21 Dose: 1 cap Furosemide (Lasix) 20 mg PO DAILY [facility] Last Admin: 12/01/18 13:58 Dose: 20 mg Haloperidol (Haldol) 2 mg PO Q6H PRN PRN Reason: Agitation Last Admin: 11/27/18 14:29 Dose: 2 mg Haloperidol (Haldol) 1 mg PO BID [facility] Last Admin: 11/29/18 17:34 Dose: 1 mg Pantoprazole Sodium (Protonix Ec Tab) 40 mg PO DAILY [facility] Last Admin: 12/01/18 13:57 Dose: 40 mg - Labs Labs: 12/02/18 06:29 12/01/18 08:55 - Constitutional Appears: No Acute Distress, Chronically Ill - Head Exam Head Exam: ATRAUMATIC, NORMAL INSPECTION - Eye Exam Eye Exam: EOMI, Normal appearance - ENT Exam ENT Exam: Mucous Membranes Moist - Respiratory Exam Respiratory Exam: NORMAL BREATHING PATTERN - Cardiovascular Exam Cardiovascular Exam: REGULAR RHYTHM - GI/Abdominal Exam GI & Abdominal Exam: Soft, Normal Bowel Sounds. absent: Tenderness - Extremities Exam Extremities Exam: Normal Inspection - Neurological Exam Neurological Exam: Awake Assessment and Plan - Assessment and Plan (Free Text) Assessment: Altered mental status Consultation: Neurology, Dr. Levy---> Help appreciated * MRI without contrast --> Pt exceeds the weight limit to have it done here. Open MRI can be done as outpatient. * Video EEG was negativ. The episodes of jerking were not epileptic in nature. Psychiatry, Dr. Boyd-----> help appreciated * Supportive Therapy Imaging: - Head CT: No acute intracranial abnormality. Mild chornic microangiopathic changes and mild age-related global parenchymal volume loss. - Chest Xray: Moderate pulmonary venous congestion and small left pleural effusion. Persistent moderate cardiomegaly with unfolding of the aorta. Labs: - ABG: CO2 38; O2 79; HCO3 29.1; pH 7.49 - Urine and blood culture negative - Ammonia < 9 Possibly 2/2 dehydration * PO challenge Heart failure with preserved ejection fraction Chest x-ray: Moderate pulmonary venous congestion and small left pleural effusion. Persistent moderate cardiomegaly with unfolding of the aorta ECHO (07/07): LV systolic function is normal. EJ (55-60%). Diastolic dysfunction. No AR. There is no mitral valve regurgitation noted. There is mild TR. There is no pulmonary hypertension and no pulmonic valvular regurgitation Medication: * Lasix 40 PO daily switched 20mg IV daily Hypokalemia Repleted appropriately Continue to monitor with am labs Obesity hypoventilation syndrome BiPAP at night or continuously Hypertension Amlodipine 10mg PO daily Prophylactic measure - DVT: Lovenox 40mg SC daily - GI: Protonix 40mg IV daily - Physical Therapy Disposition: Patient to be discharged to [facility] Case discussed with Dr. Rikki Amaro PGY-2
[2018-12-02 07:50] LABS: ALB/GLOB RATIO 1.2 (1.0-2.1); CALCIUM 9.7 mg/dl (8.6-10.4)
[2018-12-02] MEDS: Enoxaparin 40 mg Syringe SC SCH (11:03)
[2018-12-02] MEDS: Pantoprazole 40 mg EC Tab PO SCH (11:03)
[2018-12-02] MEDS: Diclofenac Sodium Delayed Release 50 mg EC Tab PO SCH ×4 (11:03→17:41)
[2018-12-02 16:33] VITALS: RESP 20
[2018-12-02 16:40] VITALS: BP 120/76; PULSE 90; TEMP 98
--- NOTE | 2018-12-04 12:09 | DS ---
The patient was admitted to the hospital with the chief complaint of altered mental status, weakness, fatigue, and tiredness. The patient found to have elevated CO2 on admission, started on BiPAP therapy, seen by neurologist for and abnormal behavior. CAT scan done because of the large body size. The patient transferred to rehab. DIAGNOSES: Chronic obstructive pulmonary disease, chronic hypercapnic respiratory failure, dementia . Elie Brandt MD
[2018-12-05 10:37] VITALS: O2SAT 97
--- NOTE | 2018-12-07 09:02 | PQF ---
PROVIDER RESPONSE TEXT: Acute on chronic REVIEWER QUERY TEXT: Acuity Specificity Physician?s Documentation Request This Form is Not a Permanent Document in the Medical Record Pt Name: SEGUNDO LIU MR #: [id number] Payor: MEDICARE HMO Unit/Bed: [id number]-[id number] Adm Date: 11/27/2018 8:14:00 AM Reviewer: Genna Zayas Ext. Query Date: 12/05/2018 7:00:00 AM Acuity Specificity [id number] By submitting this query, we are merely seeking further clarification of documentation to accurately reflect all conditions that you are monitoring, evaluating, treating or that extend the hospitalizati on or utilize additional resources of care. Please utilize your independent clinical judgment when ad dressing the question(s) below. Dear Doctor Elie Brandt, The patient?s Clinical Indicators include: 1. COPD with CHRONIC HYPERCAPNIC RESPIRATORY FAILURE. 2. AMS , AGITATION, DELIRIUM, DEMENTIA, ? ENCEPHALOPATHY ? PLEASE, CLARIFY ACUITY OF COPD ALSO PLEASE, CLARIFY ETIOLOGY OF AMS __COPD is documented in the Medical Record. Please specify the acuity of this condition with terms such as: -- Acute -- Chronic -- Acute and chronic -- Acute on chronic -- Other (please specify in the medical record) PLEASE DOCUMENT ANY ADDITIONAL DIAGNOSES AND/OR SPECIFICITY IN THE PROGRESS NOTES AND/OR DISCHARGE [facility]. Clinically unable to determine/unknown Disagree with the above request Need to discuss Query created by: Genna Zayas on 12/05/2018 7:00 AM Electronically signed by: Elie Brandt MD 12/07/2018 8:58 AM
== END 2018-12-02 21:45 | DRG 191 ==
LOC: C.ER 14:10 → C.9E 18:25 → C.5S 21:38 → OBSVTOIN 11-27 08:14 → C.5S 12-01 18:52
PROVIDERS: ADMIT Internal Medicine Pulmonary Disease; ATTEND Internal Medicine Pulmonary Disease
PROC: 5A09557 Assistance with Respiratory Ventilation, Greater than 96 Consecutive Hours, Continuous Positive Airway Pressure (ICD-10-PCS; principal; 2018-11-27)
PROC: 4A10X4Z Monitoring of Central Nervous Electrical Activity, External Approach (ICD-10-PCS; 2018-11-29)
DX: J44.1 Chronic obstructive pulmonary disease with (acute) exacerbation (principal); J96.12 Chronic respiratory failure with hypercapnia; G93.40 Encephalopathy, unspecified; I11.0 Hypertensive heart disease with heart failure; I50.32 Chronic diastolic (congestive) heart failure; E66.2 Morbid (severe) obesity with alveolar hypoventilation; F05 Delirium due to known physiological condition; E87.6 Hypokalemia; F91.8 Other conduct disorders; G89.29 Other chronic pain; M19.90 Unspecified osteoarthritis, unspecified site; R32 Unspecified urinary incontinence; F03.90 Unspecified dementia, unspecified severity, without behavioral disturbance, psychotic disturbance, mood disturbance, and anxiety; Z99.81 Dependence on supplemental oxygen; Z90.49 Acquired absence of other specified parts of digestive tract

== ENCOUNTER 2018-12-05 05:02 | Inpatient (IN) | payer MEDICARE, MEDICAID | END 2018-12-11 13:55 | DRG 689 | LOC: C.5S 12-11 09:20 → C.ER 05:02 → C.9E 06:51 → C.6T 09:06 → C.5S 17:26 | PROC: 5A09457 Assistance with Respiratory Ventilation, 24-96 Consecutive Hours, Continuous Positive Airway Pressure (ICD-10-PCS; principal; 2018-12-05) | PROC: 4A10X4Z Monitoring of Central Nervous Electrical Activity, External Approach (ICD-10-PCS; 2018-12-05) | DX: N39.0 Urinary tract infection, site not specified (principal); G92 Toxic encephalopathy; E66.2 Morbid (severe) obesity with alveolar hypoventilation; I50.32 Chronic diastolic (congestive) heart failure; R56.9 Unspecified convulsions; J44.9 Chronic obstructive pulmonary disease, unspecified; G89.29 Other chronic pain; M19.90 Unspecified osteoarthritis, unspecified site; Z74.01 Bed confinement status; F03.90 Unspecified dementia, unspecified severity, without behavioral disturbance, psychotic disturbance, mood disturbance, and anxiety; R41.0 Disorientation, unspecified; B95.2 Enterococcus as the cause of diseases classified elsewhere; Z51.5 Encounter for palliative care; R33.9 Retention of urine, unspecified; M54.9 Dorsalgia, unspecified; E87.6 Hypokalemia; I11.0 Hypertensive heart disease with heart failure ==